=== PATIENT | female | born 1965 | race Caucasian/White ===

== ENCOUNTER → 2018-10-16 14:29 | Outpatient (CLI) | payer MEDICARE, SELFPAY ==
--- NOTE | 2018-10-16 14:37 | RAD_ITS ---
STUDY: X-RAY - LEFT KNEE REASON FOR EXAM: Female, 53 years old. Pain. TECHNIQUE: 4 view(s) of the knee, 2 labeled as weightbearing. COMPARISON: None. FINDINGS: There is periarticular spurring of the femoral condyles. There is periarticular spurring of the tibial plateaus and focal spurring from the medial tibial spine. Mild subarticular sclerosis of the medial tibial plateau. Normal visualized proximal fibula. There is periarticular spurring of the base and apex of the patella as well as early cortical spurring at the patellar insertion of the quadriceps tendon. There is no demonstrated destructive osseous lesion or acute fracture. There is degenerative arthrosis of the medial femorotibial compartment with moderately severe joint space narrowing. Normal lateral femorotibial compartment. Normal patellofemoral articulation. Normal proximal tibiofibular articulation. There is a soft tissue prominence in the suprapatellar region suggesting a small volume joint effusion. There is mild soft tissue swelling anterior to the patellar tendon. RAD/Knee 4 or More Views IMPRESSION: Degenerative arthrosis of the knee, most prominent in the medial femorotibial compartment. Electronically Signed: Fermín Marie MD at 16:25 EST , Service support ,
--- NOTE | 2018-10-16 14:37 | RAD_ITS ---
STUDY: X-RAY - LUMBAR SPINE REASON FOR EXAM: Female, 53 years old. Back pain. Surgery 2003. TECHNIQUE: 5 view(s) of the lumbar spine were obtained. COMPARISON: None FINDINGS: Patient has undergone prior L3 laminectomies and posterior spinal fusion L2-L4 with metal hardware. Bilateral transpedicular screws at these levels are secured on either side by metal brackets. There is some straightening of the normal lumbar lordosis. There is no substantial scoliosis. There is borderline retrolisthesis of L2 on L3 and borderline anterolisthesis of L3 on L4. There is multilevel endplate spondylosis of the lumbar vertebrae, most prominent at L4-5. There is multi-level degenerative disc disease with multi-level disc space narrowing, again most prominent at L4-5. There is no demonstrated osseous destructive lesion or acute fracture. No sign of hardware loosening. There are degenerative arthroses of the mid to lower lumbar facet joints. The soft tissue structures are unremarkable. RAD/L/S Spine Min 4 Views IMPRESSION: 1. Prior L3 laminectomies and posterior L2-L4 fusion with metal hardware. 2. Degenerative changes of the spine, as detailed above. Electronically Signed: Fermín Marie MD at 19:38 EST , Service support ,
--- NOTE | 2018-10-16 14:46 | RAD_ITS ---
STUDY: X-RAY - RIGHT KNEE REASON FOR EXAM: Female, 53 years old. Pain. TECHNIQUE: 4 view(s) of the knee. COMPARISON: None. FINDINGS: Normal visualized distal femur. Mild spurring of the medial tibial spine. Normal visualized proximal fibula. Normal patella. There is no demonstrated destructive osseous lesion or acute fracture. There is degenerative arthrosis of the medial femorotibial compartment with moderate to moderately severe joint space narrowing. There is borderline degenerative narrowing of the lateral femorotibial compartment. Borderline narrowing of the patellofemoral articulation. Normal proximal tibiofibular articulation. There is a soft tissue prominence in the suprapatellar region suggesting a small volume joint effusion. There is minor soft tissue swelling anterior to the patellar tendon. RAD/Knee 4 or More Views IMPRESSION: Degenerative changes of the right knee, with narrowing most prominent in the medial femorotibial compartment. Very small joint effusion also noted. Electronically Signed: Fermín Marie MD at 16:22 EST , Service support ,
== END ==
PROVIDERS: Family Provider Internal Medicine; Visit Provider Internal Medicine
DX: M25.561 Pain in right knee (principal); M25.562 Pain in left knee; M51.36 Other intervertebral disc degeneration, lumbar region
CPT/HCPCS: 72110; 73564

== ENCOUNTER → 2019-07-10 06:57 | Outpatient (CLI) | payer MEDICARE, SELFPAY ==
[2019-07-10 08:20] LABS: Hematocrit 43.2 % (37-47); Hemoglobin 14.6 g/dL (12.0-15.0); Mean Corp Hgb Conc 33.8 g/dL (32-36); Mean Corpuscular Hgb 30.4 pg (27.0-32.0); Mean Platelet Vol. 10.5 fl (6.2-12.0); Platelet Count 301 K/mm3 (150-450); RBC Distribution Width CV 13.2 % (11.6-14.6); RBC Distribution Width SD 43.7 fl (35.1-43.9); White Blood Count 7.8 K/mm3 (4.4-11.0)
[2019-07-10 08:48] LABS: Anion Gap 8 (5-15); BUN 17 mg/dL (7-18); BUN/Creat Ratio 24.7 RATIO (10-20); Calcium,Total 8.8 mg/dL (8.5-10.1); Chloride 95 mmol/L (98-107); Creatinine, Serum 0.69 mg/dL (0.55-1.02); EST Glomerular Filtration Rate 94 mL/min (>60); Est Glom Filt Rate - Afr Amer 114 mL/min (>60); Glucose 98 mg/dL (74-106); Potassium 4.1 mmol/L (3.5-5.1); Sodium Level 133 mmol/L (136-145)
== END ==
PROVIDERS: Family Provider Internal Medicine; PCP Internal Medicine; Referring Provider Orthopaedic Surgery; Visit Provider Orthopaedic Surgery
DX: Z01.810 Encounter for preprocedural cardiovascular examination (principal); Z01.818 Encounter for other preprocedural examination
CPT/HCPCS: 36415; 80048; 85027; 93005

== ENCOUNTER → 2019-10-17 08:09 | Outpatient (CLI) | payer MEDICARE, SELFPAY ==
--- NOTE | 2019-10-17 08:12 | CT_ITS ---
STUDY: CT LOWER EXTREMITY RIGHT REASON FOR EXAM: Female, 54 years old. RIGHT KNEE PILO RADIATION DOSAGE (If Supplied By Facility): CTDIvol = ( 32.53 ) mGy, DLP = ( 1853.41 ) mGycm. Individualized dose optimization techniques were used for this CT.? TECHNIQUE: Multiple axial tomographic images were obtained from the hip joint down to the ankle joint for preoperative planning for robotic surgery. Coronal and sagittal reconstruction were obtained as well. COMPARISON: None. FINDINGS: Mild to moderate degree of osteoarthritis of the medial compartment of the knee joint. Increased density in the medial plateau of the tibia suggestive of possible edema. CT/Extremity Lower without Contra IMPRESSION: Imaging obtained for robotic surgery planning of the knee joint. Electronically Signed: Tad Benjamin, at 14:46 EST , Service support ,
--- NOTE | 2019-10-17 08:15 | CT_ITS ---
STUDY: CT SCAN LOWER EXTREMITY LEFT REASON FOR EXAM: Female, 54 years old. LEFT KNEE PILO RADIATION DOSAGE (If Supplied By Facility): CTDIvol = ( 32.73 ) mGy, DLP = ( 2140.58 ) mGycm. Individualized dose optimization techniques were used for this CT.? TECHNIQUE: Multiple axial tomographic images were obtained from the hip joint down to the ankle joint without intravenous contrast administration. Sagittal and coronal reconstructions were obtained as well. This examination was obtained for preoperative planning for robotic knee replacement surgery. COMPARISON: None. FINDINGS: Marked degree of narrowing of the medial compartment of the knee joint with degenerative spur formation along the medial femoral condyle as well as the medial tibial plateau. CT/Extremity Lower without Contra IMPRESSION: Preoperative scanning of the left lower extremity for robotic knee surgery planning. Electronically Signed: Tad Benjamin, at 14:47 EST , Service support ,
== END ==
PROVIDERS: Family Provider Internal Medicine; PCP Internal Medicine; Referring Provider Orthopaedic Surgery; Visit Provider Orthopaedic Surgery
DX: M17.0 Bilateral primary osteoarthritis of knee (principal); M21.161 Varus deformity, not elsewhere classified, right knee; M21.162 Varus deformity, not elsewhere classified, left knee
CPT/HCPCS: 73700

== ENCOUNTER 2019-10-28 12:20 | Observation (INO) | payer MEDICARE, SELFPAY ==
[2019-10-16 09:06] VITALS: BP 104/74; PULSE 85; RESP 16; TEMP 37.1; O2SAT 97; BMI 23.1
--- NOTE | 2019-10-16 09:33 | SDCEKG_ITS ---
Test Reason : Blood Pressure : / mmHG Vent. Rate : 074 BPM Atrial Rate : 074 BPM P-R Int : 190 ms QRS Dur : 096 ms QT Int : 398 ms P-R-T Axes : 076 054 047 degrees QTc Int : 441 ms Normal sinus rhythm Possible Left atrial enlargement RSR' or QR pattern in V1 suggests right ventricular conduction delay Borderline ECG Confirmed by LEO PETTIT ([id number]), material expeditor ZAYNAB OCASIO ([id number]) on 10/17/2019 8:44:03 AM Referred By: Nikita Stanley Confirmed By:LEO PETTIT
[2019-10-16 11:01] LABS: Absolute Lymphocyte Count 2.35 X10^3/uL (0.83-4.51); Absolute Neutrophil Count 3.9 X10^3/uL (2.0-7.7); Basophil# 0.08 X10^3/uL; Basophil% 1.1 % (0-1); Eosinophil# 0.18 X10^3/uL; Eosinophils% 2.4 % (0-5); Hematocrit 43.5 % (37-47); Hemoglobin 14.5 g/dL (12.0-15.0); Lymphocyte # 2.35 X10^3/ul (4.0); Lymphocyte % 31.5 % (19-41); Mean Corp Hgb Conc 33.3 g/dL (32-36); Mean Corpuscular Hgb 29.7 pg (27.0-32.0); Mean Corpuscular Volume 89.1 fL (81-99); Mean Platelet Vol. 10.7 fl (6.2-12.0); Monocyte# 0.92 X10^3/uL; Monocyte% 12.3 % (0-10); NRBC Flagged by Analyzer 0 % (0-5); Neutrophil # 3.89 X10^3/uL (2.7-7.7); Neutrophil % 52.2 % (47-70); Platelet Count 258 K/mm3 (150-450); RBC Distribution Width CV 13.2 % (11.6-14.6); RBC Distribution Width SD 43.3 fl (35.1-43.9); Red Blood Count 4.88 M/mm3 (4.2-5.4); White Blood Count 7.5 K/mm3 (4.4-11.0)
[2019-10-16 11:02] LABS: Anion Gap 4 (5-15); BUN 17 mg/dL (7-18); BUN/Creat Ratio 24.2 RATIO (10-20); Chloride 100 mmol/L (98-107); EST Glomerular Filtration Rate 92 mL/min (>60); Est Glom Filt Rate - Afr Amer 111 mL/min (>60); Glucose 89 mg/dL (74-106); Potassium 3.3 mmol/L (3.5-5.1); Sodium Level 134 mmol/L (136-145)
[2019-10-28] VITALS (13 sets, daily range): BP systolic 91–106; BP diastolic 56–70; PULSE 72–98; RESP 16–18; TEMP 36.4–37.3; O2SAT 93–100; BMI 23.1
[2019-10-28] MEDS: Acetaminophen 500 MG Tablet 1000 MG PO ×2 (09:15→21:19)
[2019-10-28] MEDS: Magnesium Sulfate 4gm/100mL 4 GM/100 ML IV.SOLN. IV (09:15)
[2019-10-28] MEDS: Gabapentin 600 MG Tablet PO (09:15)
[2019-10-28] MEDS: Lactated Ringers 1,000 ML 100 ML IV (09:29)
[2019-10-28 09:41] LABS: Bedside Glucose 76 mg/dL (70-110)
--- NOTE | 2019-10-28 10:35 | KNEE_PTH ---
PATIENT: QUINTIN DAVID LOC: MS3 U#:[id number] AGE/SX: 54/F ROOM: [facility] [place]: Dr. Nikita Stanley DO : 1965 BED: 1 DIS: 10/29/2019 SPEC #: [id number] RECD: 10/28/19 13:25 STATUS: ISABELLA REYuliana #: [id number] SPENCER: 10/28/19 10:[address]: Nikita Stanley DEPT: SURGICAL PATHOLOGY RECD BY: Kathy Engel ENTERED: 10/28/19 14:52 SP TYPE: TOTAL KNEE OTHR DR: Dr. Daisy Escobar DO Tissues: Knee, NOS Procedures: Decalcification bone/plaque Surgery Specimen Level IV HEADER OPERATION: ERAS, total knee replacement robotic arm assist PRE-OP DIAGNOSIS: Unilateral primary osteoarthritis TISSUE SUBMITTED: Right knee bone MICROSCOPIC DIAGNOSIS Right knee bone, total knee replacement: Pieces of bone with degenerative osteoarthritic changes. SJ:carey 10/31/19 MICROSCOPIC DESCRIPTION Slides are reviewed. GROSS DESCRIPTION Received is one container designated bone right knee. The specimen consists of multiple fragments of garrett-yellow bone measuring in aggregate 12 x 10 x 3 cm. No soft tissue is identified. A number of bony fragments contain articular surfaces consistent with tibial plateau and femoral condyle and displaying prominent osteophyte formation, eburnation, and bone erosion. Director Of Digital Platforms sections are submitted in one cassette after decalcification. / YISEL:carey 10/28/19 TC:5 CPT: 44160, 49292
[2019-10-28] MEDS: Cefazolin 2 GM in 0.9% Normal Saline 100 ML IV (10:50)
--- NOTE | 2019-10-28 12:22 | RAD_ITS ---
STUDY: X-RAY - RIGHT KNEE REASON FOR EXAM: Female, 54 years old. POST OP RIGHT TOTAL KNEE REPLACEMENT. TECHNIQUE: 2 view(s) of the knee. COMPARISON: Comparison is made with prior study dated October 16, 2018. FINDINGS: Normal visualized distal femur. Normal visualized proximal tibia and fibula. Normal proximal tibiofibular articulation. The patient is status post total knee replacement. There is good alignment. Postoperative soft tissue changes. RAD/Knee 1 or 2 Views IMPRESSION: Status post right total knee replacement. There is good alignment. Postoperative soft tissue changes. Electronically Signed: Tad Benjamin, at 13:53 EST , Service support ,
[2019-10-28] MEDS: Lactated Ringers 1,000 ML 999 ML IV (12:30)
[2019-10-28] MEDS: Bupivacaine Mpf 0.5% 30 ML VIAL (12:42)
[2019-10-28] MEDS: Betamethasone/Betamethasone 30 MG/5 ML Vial (12:42)
[2019-10-28 14:11] LABS: Hematocrit 38.8 % (37-47); Hemoglobin 13.1 g/dL (12.0-15.0); Mean Corp Hgb Conc 33.8 g/dL (32-36); Mean Corpuscular Hgb 30.3 pg (27.0-32.0); Mean Corpuscular Volume 89.6 fL (81-99); Mean Platelet Vol. 9.7 fl (6.2-12.0); Platelet Count 254 K/mm3 (150-450); RBC Distribution Width CV 13.1 % (11.6-14.6); RBC Distribution Width SD 42.9 fl (35.1-43.9); Red Blood Count 4.33 M/mm3 (4.2-5.4); White Blood Count 9.1 K/mm3 (4.4-11.0)
[2019-10-28 14:21] LABS: Anion Gap 4 (5-15); BUN 21 mg/dL (7-18); BUN/Creat Ratio 25.1 RATIO (10-20); Calcium,Total 8.5 mg/dL (8.5-10.1); Chloride 103 mmol/L (98-107); Creatinine, Serum 0.84 mg/dL (0.55-1.02); EST Glomerular Filtration Rate 75 mL/min (>60); Est Glom Filt Rate - Afr Amer 91 mL/min (>60); Estimated Creatinine Clearance 76.34 ml/min; Glucose 127 mg/dL (74-106); Potassium 3.6 mmol/L (3.5-5.1); Sodium Level 138 mmol/L (136-145)
--- NOTE | 2019-10-28 14:37 | PCM.OPRPT ---
Report of Operation Date of Procedure: 10/28/19 Pre-Operative Diagnosis: OA b/l knees Post-Operative Diagnosis: same Surgery/Procedure Performed:: Right TKR (robotically assisted). Intra-articular cortisone injection left knee pediatric care coordinator: Asher Linares Type of Anesthesia:: General/Regional Anesthesiologist: Bandar Metzger - Cabrera VTE Documentation VTE Present on Admission: No VTE Mechan Device Prophylaxis: SCD's, Thigh High NOMI Hose VTE Pharm Prophylaxis ordered?: Yes
[2019-10-28] MEDS: oxyCODONE 5 MG Tablet PO ×2 (15:09→20:18)
[2019-10-28] MEDS: busPIRone 15 MG TABLET PO ×2 (16:01→21:18)
[2019-10-28] MEDS: Cefazolin 1 GM/50 ML BAG IV (18:56)
[2019-10-28] MEDS: Lactated Ringers 1,000 ML 125 ML IV (18:57)
[2019-10-28] MEDS: Aspirin 325 MG Tablet PO (21:18)
[2019-10-29] MEDS: Cefazolin 1 GM/50 ML BAG IV (02:36)
[2019-10-29 02:40] VITALS: BP 96/57; PULSE 75; RESP 16; TEMP 36.4; O2SAT 95
[2019-10-29] MEDS: oxyCODONE 5 MG Tablet PO ×3 (02:50→10:58)
[2019-10-29] MEDS: Acetaminophen 500 MG Tablet 1000 MG PO (06:10)
[2019-10-29] MEDS: busPIRone 15 MG TABLET PO (06:11)
[2019-10-29] MEDS: 0.9% Saline Lock 10 ML Syringe IV (06:16)
[2019-10-29 06:22] LABS: Hematocrit 37.9 % (37-47); Hemoglobin 12.5 g/dL (12.0-15.0); Mean Corpuscular Hgb 30.9 pg (27.0-32.0); Mean Corpuscular Volume 93.8 fL (81-99); Mean Platelet Vol. 11.4 fl (6.2-12.0); Platelet Count 159 K/mm3 (150-450); RBC Distribution Width SD 51.8 fl (35.1-43.9); Red Blood Count 4.04 M/mm3 (4.2-5.4); White Blood Count 10.8 K/mm3 (4.4-11.0)
[2019-10-29 06:45] LABS: Anion Gap 5 (5-15); BUN 17 mg/dL (7-18); BUN/Creat Ratio 29.8 RATIO (10-20); Calcium,Total 8.1 mg/dL (8.5-10.1); Chloride 108 mmol/L (98-107); Creatinine, Serum 0.57 mg/dL (0.55-1.02); EST Glomerular Filtration Rate 117 mL/min (>60); Est Glom Filt Rate - Afr Amer 141 mL/min (>60); Estimated Creatinine Clearance 112.49 ml/min; Glucose 114 mg/dL (74-106); Potassium 4.5 mmol/L (3.5-5.1); Sodium Level 134 mmol/L (136-145)
--- NOTE | 2019-10-29 07:43 | PN.ORTHO_ITS ---
Subjective: Patient sitting at bedside eating breakfast. Patient states pain is well- managed. Patient denies chest pain, shortness of breath, calf pain, nausea vomiting. Patient states she is ready for discharge home. Patient has no other complaints. Objective: Dressing is clean dry intact. Negative signs and symptoms of DVT. Patient speaking full sentences without respiratory distress. Patient has good plantar flexion dorsiflexion of the bilateral lower extremities. Neurovascular is otherwise intact. Patient is afebrile, vitals labs were all reviewed and noted in the medical record. - Physical Exam Vitals/I&O's: Vital Signs Temp Pulse Resp BP Pulse Ox 97.6 F L 75 16 96/57 L 95 10/29/19 02:40 10/29/19 02:40 10/29/19 02:40 10/29/19 02:40 10/29/19 02:40 Oxygen Flow Rate (L/min) 6 Oxygen Delivery Method Room Air Weight: 68.8 kg Body Mass Index (BMI) 23.1 Intake and Output for Last 24 Hours 10/27/19 10/28/19 10/29/19 23:59 23:59 23:59 Intake Total 3232.08 / 3232.08 350 / 350 Output Total 700 / 700 Balance 3232.08 / 3232.08 -350 / -350 General: Alert, Oriented x3, Cooperative HEENT: PERRLA Oral: Moist Mucosa Neurological: Cranial nerves II-XII grossly intact Psych/Mental Status: Normal Affect, Alert and oriented to time, place, person, mood and affect Laboratory Results 10/28/19 09:02: POC Glucose 76 10/28/19 14:00: WBC 9.1, RBC 4.33, Hgb 13.1, Hct 38.8, MCV 89.6, MCH 30.3, MCHC 33.8, RDW Std Deviation 42.9, RDW Coeff of Gertrudis 13.1, Plt Count 254, MPV 9.7 10/28/19 14:00: Sodium 138, Potassium 3.6, Chloride 103, Carbon Dioxide 31.0, Anion Gap 4 L, BUN 21 H, Creatinine 0.84, Estim Creat Clear Calc 76.34, Est GFR (MDRD) Af Amer 91, Est GFR (MDRD) Non-Af 75, BUN/Creatinine Ratio 25.1 H, Glucose 127 H, Calcium 8.5 10/29/19 05:24: WBC 10.8, RBC 4.04 L, Hgb 12.5, Hct 37.9, MCV 93.8, MCH 30.9, MCHC 33.0, RDW Std Deviation 51.8 H, RDW Coeff of Gertrudis 15.0 H, Plt Count 159, MPV 11.4 10/29/19 05:24: Sodium 134 L, Potassium 4.5, Chloride 108 H, Carbon Dioxide 21.0, Anion Gap 5, BUN 17, Creatinine 0.57, Estim Creat Clear Calc 112.49, Est GFR (MDRD) Af Amer 141, Est GFR (MDRD) Non-Af 117, BUN/Creatinine Ratio 29.8 H, Glucose 114 H, Calcium 8.1 L Current Medications Acetaminophen (Tylenol) 1,000 mg PO Q8 REPLACED BY [facility] Last Admin: 10/29/19 06:10 Dose: 1,000 mg Documented by: Aspirin (Aspirin) 325 mg PO BID REPLACED BY [facility] Last Admin: 10/28/19 21:18 Dose: 325 mg Documented by: Buspirone HCl (Buspar) 15 mg PO TID REPLACED BY [facility] Last Admin: 10/29/19 06:11 Dose: 15 mg Documented by: Sodium Chloride () 250 mls @ 15 mls/hr IV .[id number] PRN PRN Reason: Saline Flush Sodium Chloride () 250 mls @ 15 mls/hr IV .[id number] PRN PRN Reason: Additional IVPB Infusion Indapamide (Lozol) 2.5 mg PO DAILY REPLACED BY [facility] Insulin Human Lispro (Humalog Kwikpen (Bkc)) 1 - 6 unit SC Q4H PRN PRN; Protocol PRN Reason: BG>/= 180, SEE PROTOCOL Lisinopril (Zestril) 20 mg PO DAILY REPLACED BY [facility] Ondansetron HCl (Zofran) 4 mg IV Q8H PRN PRN PRN Reason: NAUSEA Oxycodone HCl (Oxyir) 5 - 10 mg PO Q4H PRN PRN PRN Reason: Pain Score 4-10/10 Last Admin: 10/29/19 06:57 Dose: 5 mg Documented by: Promethazine HCl (Phenergan) 12.5 mg IM Q6H PRN PRN; Protocol PRN Reason: NAUSEA/VOMITING Senna/Docusate Sodium (Senokot-S, Ashley-Colace) 2 tablet PO BID MAYCOL Last Admin: 10/28/19 21:19 Dose: Not Given Documented by: Sodium Chloride () 10 - 40 ml IV UD PRN PRN Reason: SALINE FLUSH Last Admin: 10/29/19 06:16 Dose: 10 ml Documented by: Medical Necessity - Tobacco Use Smoking Status: Former smoker Tobacco Use: Cigarettes Assessment/Plan Status post right total knee arthroplasty 1. Continue all pain medications as prescribed 2. Continue physical therapy, weight-bear as tolerated with walker 3. Aspirin 3 and 25 mg 1 p.o. every 12 hours x30 days for postop DVT prophylaxi s 4. Encourage incentive spirometry 5. Discharge home today after p.m. therapy 6. Follow-up as scheduled, see pink sheet 7. Shower , 10/31/2019
--- NOTE | 2019-10-29 07:58 | DCINST_ITS ---
Discharge Diet: No Restrictions Discharge Activity: May Not Drive May shower in (days): 2 Ice area for (Minutes): 20 - each hour while awake. Weight Bearing Status: Weight bearing as tolerated Elevate: Operative Extremity Additional Activity Instructions:: Wear elastic stockings for 2 weeks after your surgery. Call your doctor if your incision/area has: Continuous Slow Oozing, Sudden Increased Bleeding, Increased Pain/ Swelling, Increased Redness, Foul Smelling Discharge Call your doctor if you observe: Fever of 101 or Higher, Coldness, Increased Pain - in extremity, Numbness or Tingling, Change in Color, Calf discomfort, Uncontrolled pain Change Dressing in (Days):: 0 - and daily as needed. Remove Dressing in (days):: 8 Cleanse incision/area with: Soap & Water Allergies/Adverse Reactions: Allergies No Known Allergies Allergy (Verified 10/28/19 08:57) Medications to take at Discharge Dextroamphetamine/Amphetamine [Adderall 10 mg Tablet] 10 mg PO 1400 10/16/19 Dextroamphetamine/Amphetamine [Adderall Xr 10 mg Capsule] 10 mg PO DAILY 10/16/19 Indapamide 2.5 mg PO DAILY 10/16/19 Lisinopril 20 mg PO DAILY 10/16/19 busPIRone [Buspar] 15 mg PO TID 10/16/19 Acetaminophen [Tylenol] 1,000 mg PO Q8 #90 tab 10/29/19 Aspirin 325 mg PO BID #60 tab 10/29/19 Oxycodone [Oxyir] 5 - 10 mg PO Q4H PRN PRN 7 Days #84 tab 10/29/19 The following prescriptions were given: Aspirin 325 mg PO BID #60 tab Prescription Printed Oxycodone [Oxyir] 5 - 10 mg PO Q4H PRN PRN 7 Days #84 tab PRN Reason: Pain Score 4-10/10 Prescription Printed Acetaminophen [Tylenol] 1,000 mg PO Q8 #90 tab Prescription Printed Primary Care Physician: Daisy Escobar DO [Primary Care Provider] - Test Results: Test results from this visit will be discussed in further detail at your follow- up appointment, if applicable. Please Follow Up With: Asher Linares PA-C When: as scheduled (see pink sheet)
[2019-10-29] MEDS: Aspirin 325 MG Tablet PO (08:11)
[2019-10-29] MEDS: Indapamide 2.5 MG Tablet PO (08:12)
[2019-10-29] MEDS: Lisinopril 20 MG Tablet PO (08:12)
[2019-10-29] MEDS: Senna/Docusate Sodium 1 Tablet 2 TABLET PO (08:12)
[2019-10-29 08:15] VITALS: BP 99/59; PULSE 75; RESP 16; TEMP 36.8; O2SAT 96
--- NOTE | 2019-10-29 10:20 | CASEMGMT ---
RN CAREY Face to Face with patient for initial transition planning/care coordination assessment. RN CM introduced self and role at [facility]. Patient sitting in chair, alert and oriented, at bedside. Patient willing to participate in assessment and is able to answer all questions appropriately. Care providers, pharmacy, and demographics verified. Patient wishes to discharge home and is scheduled for outpatient therapy at [facility]. Patient states she has no further needs or concerns at this time. CM to follow for discharge planning needs that may arise. PCP: Shawn Specialists: braden Stanley Pharmacy: [facility] Boat[facility] being filled at [facility] retail Insurance: [facility] Prescription Benefit: yes Living Will/HPOA: yes, but not sure who is appointed LNOK: daughter, Living Arrangements: patient lives with in 2 story home with bed and bath on first floor. Transportation: DME/HHC: Patient has shower chair, walker, and grab bars at home. Patient has outpatient therapy scheduled with [facility] Disposition Plan: Patient to discharge home with outpatient therapy, family support, and follow-up plans in place. Kathryn COOPER, RN, CM
[2019-10-29 13:10] VITALS: BP 103/59; PULSE 74; RESP 16; TEMP 36.7; O2SAT 93
== END 2019-10-29 13:10 | disposition home or self-care (01) ==
LOC: MS3 20:06
PROVIDERS: Admitting Provider Orthopaedic Surgery; Family Provider Internal Medicine; PCP Internal Medicine; Referring Provider Orthopaedic Surgery; Visit Provider Orthopaedic Surgery
PROC: 0SRC0JZ Replacement of Right Knee Joint with Synthetic Substitute, Open Approach (ICD-10-PCS; CPT 27447; principal; 2019-10-28 10:05)
DX: M17.0 Bilateral primary osteoarthritis of knee (principal); Z87.891 Personal history of nicotine dependence; Z79.899 Other long term (current) drug therapy; I10 Essential (primary) hypertension; F90.9 Attention-deficit hyperactivity disorder, unspecified type
CPT/HCPCS: 01400; 20610; 27447; 64447; S2900; 36415; 73560; 80048; 82962; 85025; 85027; 87081; 88305; 88311; 93005; 96361; 96365; 96366; 97110; 97161; 97165; 97530; 97535; 99218; 99251; C1776; J7120; A4216; G0378; G0379; G0463; J0702; J2405

== ENCOUNTER → 2020-01-06 09:43 | Outpatient (CLI) | payer MEDICARE, SELFPAY ==
[2019-10-28 08:58] VITALS: BMI 23.1
--- NOTE | 2020-01-06 09:49 | RAD_ITS ---
STUDY: X-RAY - LUMBAR SPINE REASON FOR EXAM: Female, 54 years old. SCIATICA TECHNIQUE: 5 view(s) of the lumbar spine were obtained including oblique views. COMPARISON: Comparison is made with prior examination dated October 16, 2018. FINDINGS: The patient is status post laminectomy and fusion with interpedicular screw and nicolas fixation at the L3-L4 and L4-L5 levels. There is straightening of the normal lumbar lordosis. There is no substantial scoliosis. There is a normal alignment of the vertebrae. There is multilevel endplate spondylosis of the lumbar vertebrae. There is multi-level degenerative disc disease with multi-level disc space narrowing. There is atherosclerotic calcification of the abdominal aorta without a demonstrated aneurysm. RAD/L/S Spine Min 4 Views IMPRESSION: Status post L2-L3, L3-L4 laminectomy and fusion. Degenerative changes. There has been no change since prior study. Electronically Signed: Tad Benjamin, at 11:16 EDT , Service support ,
== END ==
PROVIDERS: PCP Internal Medicine; Referring Provider Nurse Practitioner Family; Visit Provider Nurse Practitioner Family
DX: M96.1 Postlaminectomy syndrome, not elsewhere classified (principal); M47.27 Other spondylosis with radiculopathy, lumbosacral region; M48.062 Spinal stenosis, lumbar region with neurogenic claudication
CPT/HCPCS: 72110

== ENCOUNTER 2020-01-18 07:20 | Emergency (ER) | payer MEDICARE, SELFPAY ==
[2019-10-28 08:58] VITALS: BMI 23.1
[2020-01-18 07:20] VITALS: BP 129/82; PULSE 85; RESP 16; TEMP 36.6; O2SAT 99; BMI 25.7
--- NOTE | 2020-01-18 07:51 | ED.DCSUM_ITS ---
History of Present Illness Chief Complaint: Back Informant: Patient Onset: Month(s) - 1 month Context: Gradual Onset Current Severity: Moderate Maximum Severity: Moderate Narrative: Patient presents with 1 month history of back pain. She has had prior back surgery. Patient does not know of specific incident 1 month ago that started this pain. She has been seen by her PCP as well as by Dr. Guardado, pain management. Patient is currently on gabapentin and had completed a course of prednisone. She was started on baclofen 3 days ago to help with spasm. She is scheduled for an MRI on the . She presents today secondary to increased pain and difficulty sleeping. She has noted some tingling in her right foot. - Past Medical History (1) Back pain with history of spinal surgery Status: Chronic Past Medical History - Allergies and Home Meds Allergies/Adverse Reactions: Allergies No Known Allergies Allergy (Verified 10/28/19 08:57) Primary Care Physician: Daisy Escobar DO [Primary Care Provider] - Doctors: Dr. Guardado, pain management Prior records reviewed: Yes Smoking Status: Former smoker Review of Systems General: Denies: Chills, Fever Eyes: Denies: Visual changes - bilaterally ENT: Denies: Bilateral ear pain Cardiovascular: Denies: Chest pain Respiratory: Denies: Dyspnea, Cough Gastrointestinal: Denies: Abdominal pain, Nausea, Vomiting, Diarrhea Musculoskeletal: Reports: Back pain, Extremity Pain Skin: Denies: Rash Neurological: Reports: Parasthesia Hematologic: Denies: Easy bruising, Easy bleeding Allergy: Denies: Uticaria Physical Exam Vital Signs/Narrative: Vital Signs Temp Pulse Resp BP Pulse Ox 01/18/20 07:20 97.8 F 85 16 129/82 H 99 Inital Vital Signs reviewed: Yes General: Well nourished, Well developed Head: Normocephalic ENT: Moist mucous membranes Neck: Supple Cardiovascular: Regular rate, Regular rhythm Respiratory: No distress, CTA bilaterally Abdomen: Soft, Nontender Back: - - No midline thoracic or lumbar tenderness. Well-healed lumbar scar. She does have reproducible tenderness over the sciatic notch on the right. No erythema or rash noted. 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 Good strength and sensation noted on testing on the right. Strong distal pulses. 1+ bilateral patellar reflexes noted. Psychological: Normal affect Diagnostic/Tx/Re-eval - Medical Decision Making I did explain to the patient that at this time I cannot get an emergency MRI. She understands. She will be written a prescription for [place] to help with pain control. She will continue baclofen and gabapentin. I did leave a message for Dr. Guardado to notify her pain management doctor about the prescription. Patient be given an IM injection of morphine here for pain control. ED Disposition - Plan for ED Patient: Disposition: Home or Assisted Living Diagnosis: Back pain, Sciatica Instructions: Understanding Sciatica Prescriptions: Hydrocodone Bitart/Apap 5-325 [[place] 5MG-325MG] 1 tablet PO Q6H PRN PRN 3 Days #12 tablet PRN Reason: Pain Transmission Status: Sent to [id number] Referrals: Daisy Escobar DO [Primary Care Provider] - 1 Week if not improving
[2020-01-18] MEDS: morphine 8 MG/ML Syringe IM (08:11)
== END 2020-01-18 08:53 | disposition home or self-care (01) ==
LOC: ED 07:59
PROVIDERS: Emergency Provider Emergency Medicine; PCP Internal Medicine
DX: M54.31 Sciatica, right side (principal); M54.9 Dorsalgia, unspecified; Z98.890 Other specified postprocedural states; Z87.891 Personal history of nicotine dependence; Z79.899 Other long term (current) drug therapy
CPT/HCPCS: 96372; 99282

== ENCOUNTER → 2020-01-23 10:56 | Outpatient (CLI) | payer MEDICARE, SELFPAY ==
[2019-10-28 08:58] VITALS: BMI 23.1
[2020-01-18 07:20] VITALS: BMI 25.7
--- NOTE | 2020-01-23 11:13 | MRI_ITS ---
STUDY: MRI LUMBAR SPINE WITH AND WITHOUT CONTRAST REASON FOR EXAM: Female, 54 years old. SEVERE LOW BACK PAIN into R buttock x 1 month TECHNIQUE: Standardized fat and water weighted pulse sequences were obtained in the sagittal and axial planes. 14 mL of IV Dotarem was administered for the contrast portion of the examination. COMPARISON: MRI lumbar spine without contrast 03/13/2006. FINDINGS: T11-T12: (Sagittal only). Normal endplates. Normal disc height and morphology. Normal central extradural defect. Normal central canal and bilateral intervertebral neural foramina. T12-L1: (Sagittal only). Normal endplates. Mild disc space height narrowing. Small right posterior paramedian disc protrusion. Normal central canal and bilateral intervertebral neural foramina. Normal lumbar lordosis. There is no substantial scoliosis. Normal conus medullaris that terminates at the T12-L1 disc level. L1-2: Normal endplates. Small anterior disc protrusion. Minimal disc space height narrowing with mild loss of disc hydration. Small posterior bulging disc. Normal central canal and bilateral lateral recesses. Normal facet joints. Normal bilateral intervertebral neural foramina. L2-3: Normal endplates. Moderate disc space height narrowing. Pedicular screws and rods causing some mild signal distortion artifacts. Normal central canal and bilateral lateral recesses. Normal facet joints. Normal bilateral intervertebral neural foramina. L3-4: Normal endplates. Pronounced left-sided disc space height narrowing. Mild degenerative anterolisthesis of L3 on L4 is a new finding but there are pedicular screws and rods from posterior decompression fusion. Normal central canal and bilateral lateral recesses. Normal bilateral intervertebral neural foramina. L4-5: Pronounced disc space height narrowing with prominent anterior marginal spurs. Smaller posterior marginal spurs. Pedicular screws at L4. Mild central canal stenosis with an AP canal diameter of 10 mm a period normal bilateral lateral recesses. Moderate bilateral degenerative facet arthropathy. Moderate stenosis of the left intervertebral neural foramen. Mild stenosis of the right intervertebral neural foramen. L5-S1: Normal endplates. Moderate disc space height narrowing with small posterior midline disc protrusion. Moderately pronounced central canal stenosis with an AP canal diameter of 6 mm, previously 10 mm. Normal bilateral lateral recesses. Mild asymmetric degenerative facet arthropathy. Mild to moderate stenosis of the right intervertebral neural foramen with suspicious impingement of the right L5 nerve (series 6, image 12). Mild stenosis of the left intervertebral neural foramen but no impingement of the left L5 nerve. There is a recent fracture of the right L5 transverse process (series 9, images 5-6). Normal visualized sacral ala. Normal visualized paraspinous soft tissue structures. No abnormal enhancing lesions intradural lesion extradurally. MRI/Spine Lumbar W/WO Contrast IMPRESSION: 1. Recent fracture of the right L5 transverse process. 2. Interval posterior decompression and fusion at L2-L3 and L3-L4 disc space levels. 3. Moderately pronounced central canal stenosis at L5-S1 disc level with small posterior midline disc protrusion. The AP canal diameter is 6 mm, previously 10 mm. Additionally, mild to moderate stenosis of the right L5-S1 intervertebral neural foramen with suspicious impingement of the right L5 nerve. 4. Minimal L1-L2 disc space height narrowing with small posterior bulging disc, new since 03/13/2006. 5. No abnormal enhancing lesions intradurally and extradurally. Electronically Signed: Rickey Hilton MD at 13:33 EDT , Service support ,
== END ==
PROVIDERS: PCP Internal Medicine; Referring Provider Internal Medicine; Visit Provider Internal Medicine
DX: M54.16 Radiculopathy, lumbar region (principal)
CPT/HCPCS: 72158

== ENCOUNTER → 2020-03-27 10:52 | Outpatient (CLI) | payer MEDICARE, SELFPAY ==
[2020-03-27 11:38] LABS: Amphetamine Urine VISTA NEGATIVE (<1000 ng/mL); Barbiturate Urine VISTA NEGATIVE (< 200 ng/mL); Benzodiazepine Urine VISTA NEGATIVE (< 200 ng/mL); Cocaine Urine VISTA NEGATIVE (< 300 ng/mL); Ecstacy Urine VISTA NEGATIVE (< 500 ng/mL); Methadone Urine VISTA NEGATIVE (< 300 ng/mL); PCP Urine VISTA NEGATIVE (< 25 ng/mL); THC Urine VISTA NEGATIVE (< 50 ng/mL); Vista UDS pH Range 6
== END ==
PROVIDERS: PCP Internal Medicine; Referring Provider Anesthesiology; Visit Provider Anesthesiology
DX: F11.20 Opioid dependence, uncomplicated (principal)
CPT/HCPCS: 80307

== ENCOUNTER → 2020-11-17 12:27 | Outpatient (CLI) | payer MEDICARE, SELFPAY ==
--- NOTE | 2020-11-17 12:45 | BD_ITS ---
STUDY: DUAL ENERGY X-RAY ABSORPTIOMETRY / DXA REASON FOR EXAM: Female, 55 years old. Age of courtney 42. Pat is 158.9# and 67 and quot;. Past hx of smoking. Past hx of using an HRT for a short time. Has had steroid injections.Patient taking a low dose diuretic for a short time now. Hx of an L2-L4 fusion. Mom has osteo. Exercises a lot. TECHNIQUE: Bone Mineral Density (BMD) measurements of left forearm bilateral hips were obtained. COMPARISON: Comparison is made with prior examination dated 05/28/2013. FINDINGS: Left Femur Total: g/cm2 (0.710) / T-score (-2.4) / Z-score (-1.6) Left Femoral Neck: g/cm2 (0.661) / T-score (-2.7) / Z-score (-1.6) Right Femur Total: g/cm2 (0.681) / T-score (-2.6) / Z-score (-1.9) Right Femoral Neck: g/cm2 (0.639) / T-score (-2.9) / Z-score (-1.8) Left Forearm: g/cm2 (0.820) / T-score (-0.6) / Z-score (-0.1) The T-Scores on the most recent prior examination were: Left Femur Total: which represents a worsening of 9%. Right Femur Total: which represents a worsening of 9.1%. BD/Dexa Bone Density Study IMPRESSION: The patient is considered osteoporotic as outlined below according to World [employer] Organization (WHO) criteria with a high fracture risk. There has been worsening of bone density since the previous examination. Reference Information: The T-score is the number of standard deviations above or below the standard which is normal for young adults at their peak bone mineral density. The World Health Organization (WHO) interprets the T-scores as follows: Above -1 Normal bone density Between -1 and -2.5 Osteopenia Equal to / or below -2.5 Osteoporosis As a practical clinical guideline, osteopenia may be graded as follows: Mild -1 through -1.5 Moderate -1.6 through -2.0 Severe -2.1 through -2.4 The Z-score is the number of standard deviations above or below age-matched controls. A Z-score of less than -1.5 would be considered abnormal. References: 1. NIH Osteoporosis and Related Bone Diseases www osteo.org 2. International Society for Clinical Densitometry www iscd.org 3. National Osteoporosis Foundation www nof.org Electronically Signed: Tad Benjamin MD at 13:57 EST , Service support ,
== END ==
PROVIDERS: PCP Internal Medicine; Referring Provider Internal Medicine; Visit Provider Internal Medicine
DX: Z78.0 Asymptomatic menopausal state (principal); M81.0 Age-related osteoporosis without current pathological fracture
CPT/HCPCS: 77080

== ENCOUNTER → 2020-12-24 11:15 | Outpatient (CLI) | payer MEDICARE, SELFPAY ==
--- NOTE | 2020-12-24 11:21 | BI_ITS ---
MAMMOGRAPHY - BILATERAL SCREENING REASON FOR EXAM: Female, 55 years old. Routine annual screening examination. PERTINENT HISTORY: Non-contributory. TECHNIQUE: Digital bilateral breast yuridia (3D mammographic acquisition) in the CC and MLO projections. 2-D mediolateral oblique (MLO) and craniocaudad (CC) views of both breasts were obtained. CAD: Full Field Digital Mammography with Computer Added Detection was performed. COMPARISON: Comparison is made with prior outside examination of 12/02/2019 and 09/20/2013. FINDINGS: Breast Composition: The breasts are heterogeneously dense, which may obscure small masses. There are no dominant masses or suspicious calcifications. No other significant abnormalities are identified. There has been no significant change since the prior study. BI/SCRN MAMM (CAD)W/YURIDIA BILAT IMPRESSION: Stable bilateral screening mammogram. Yearly follow-up mammogram recommended. (A) ASSESSMENT CATEGORY: BIRADS Category 1: Negative. A letter regarding these results will be sent to the patient by the facility within 30 days. Approximately 10% of breast cancers are not detected by mammography. A normal mammogram should not delay biopsy of a clinically suspicious abnormality. [id number] Electronically Signed: Tad Benjamin MD at 13:43 EDT , Service support ,
== END ==
PROVIDERS: PCP Internal Medicine; Referring Provider Internal Medicine; Visit Provider Internal Medicine
DX: Z12.31 Encounter for screening mammogram for malignant neoplasm of breast (principal)
CPT/HCPCS: 77063; 77067

== ENCOUNTER → 2021-03-11 12:26 | Outpatient (CLI) | payer MEDICARE, SELFPAY ==
[2021-01-27 09:27] VITALS: BMI 25.7
[2021-03-11 13:35] LABS: Amphetamine Urine VISTA NEGATIVE (<1000 ng/mL); Barbiturate Urine VISTA NEGATIVE (< 200 ng/mL); Benzodiazepine Urine VISTA NEGATIVE (< 200 ng/mL); Cocaine Urine VISTA NEGATIVE (< 300 ng/mL); Ecstacy Urine VISTA NEGATIVE (< 500 ng/mL); Methadone Urine VISTA NEGATIVE (< 300 ng/mL); PCP Urine VISTA NEGATIVE (< 25 ng/mL); THC Urine VISTA NEGATIVE (< 50 ng/mL); Vista UDS pH Range 6
== END ==
PROVIDERS: PCP Internal Medicine; Referring Provider Anesthesiology Pain Medicine; Visit Provider Anesthesiology Pain Medicine
DX: F11.20 Opioid dependence, uncomplicated (principal)
CPT/HCPCS: 80307

== ENCOUNTER → 2021-04-07 12:18 | Outpatient (CLI) | payer MEDICARE, SELFPAY ==
[2021-01-27 09:27] VITALS: BMI 25.7
--- NOTE | 2021-04-07 12:22 | RAD_ITS ---
STUDY: X-RAY - LEFT ANKLE REASON FOR EXAM: Female, 55 years old. Heel pain following injury. TECHNIQUE: 3 view(s) of the ankle. COMPARISON: None. FINDINGS: Normal visualized distal tibia and fibula. Normal medial and lateral malleoli. Normal tibiotalar articulation and ankle mortise. Spur at insertion of the Achilles tendon. Findings suggestive of an avulsion fracture along the posterior aspect of the cuboid bone. The soft tissue structures are unremarkable. RAD/Ankle min 3 Views IMPRESSION: Findings suggestive of an avulsion fracture along the posterior aspect of the cuboid bone. Electronically Signed: Tad Benjamin MD at 15:33 EDT , Service support ,
== END ==
PROVIDERS: PCP Internal Medicine; Referring Provider Internal Medicine; Visit Provider Internal Medicine
DX: M25.572 Pain in left ankle and joints of left foot (principal)
CPT/HCPCS: 73610

== ENCOUNTER → 2021-05-08 08:44 | Outpatient (CLI) | payer MEDICARE, SELFPAY ==
[2021-01-27 09:27] VITALS: BMI 25.7
--- NOTE | 2021-05-08 08:51 | MRI_ITS ---
STUDY: MRI LEFT ANKLE WITHOUT CONTRAST REASON FOR EXAM: Female, 55 years old. ACHILLES TENDINITIS/TEAR, posterior and lateral heel pain x 2-3 months TECHNIQUE: Standardized fat and water weighted pulse sequences were obtained in all 3 orthogonal planes. COMPARISON: None. FINDINGS: Normal subcutis adipose space. Normal posterior tibialis tendon. Normal flexor digitorum longus tendon. Normal flexor hallucis longus tendon. Normal peroneus longus and brevis tendons. Normal tibialis anterior tendon. Normal extensor hallucis longus tendon. Normal extensor digitorum longus tendons. Thickening of the distal Achilles tendon consistent with insertional Achilles tendinitis. No partial thickness tear. Associated edema of Kager''s fat pad consistent with peritendinosis. Associated retrocalcaneal bursitis and posterior peritendinitis. Associated severe stress reaction of the posterior calcaneus. Normal plantar fascia. Normal plantar calcaneal tubercles. Normal intrinsic muscles of the rearfoot. Normal distal tibiofibular syndesmotic ligamentous complex. Normal lateral ligamentous complex. Normal subtalar ligaments and sinus tarsi. Normal deltoid ligamentous complexes. Normal plantar calcaneonavicular (spring) ligament. Normal tibiotalar articulation. Normal talar dome. Normal subtalar articulations. Normal talonavicular articulation. Normal calcaneocuboid articulation. Normal navicular-cuneiform articulations. MRI/Lower Ext Joint Only (Routine) IMPRESSION: Insertional Achilles tendinitis, peritendinitis is, retrocalcaneal bursitis, posterior peritendinitis, and severe stress reaction of the posterior calcaneus. However, no tendon tear. Electronically Signed: Carson Borden MD at 11:41 EDT Tel , Service support ,
== END ==
PROVIDERS: PCP Internal Medicine; Referring Provider Podiatrist; Visit Provider Podiatrist
DX: M76.62 Achilles tendinitis, left leg (principal); M77.52 Other enthesopathy of left foot and ankle; S86.012A Strain of left Achilles tendon, initial encounter; X58.XXXA Exposure to other specified factors, initial encounter; Y93.9 Activity, unspecified; Y92.9 Unspecified place or not applicable; Y99.9 Unspecified external cause status
CPT/HCPCS: 73721

== ENCOUNTER 2021-11-11 10:46 | Outpatient (CLI) | payer MEDICARE, SELFPAY ==
[2021-11-11 11:06] LABS: Absolute Lymphocyte Count 1.14 X10^3/uL (0.83-4.51); Absolute Neutrophil Count 8.8 X10^3/uL (2.0-7.7); Basophil# 0.06 X10^3/uL; Basophil% 0.5 % (0-1); Eosinophil# 0.12 X10^3/uL; Hematocrit 40.9 % (37-47); Hemoglobin 14.2 g/dL (12.0-15.0); Lymphocyte # 1.14 X10^3/ul (0.83-4.51); Mean Corp Hgb Conc 34.7 g/dL (32-36); Mean Corpuscular Hgb 31.1 pg (27.0-32.0); Mean Corpuscular Volume 89.7 fL (81-99); Mean Platelet Vol. 10.7 fl (6.2-12.0); Monocyte# 1.27 X10^3/uL; Monocyte% 11.1 % (0-10); NRBC Flagged by Analyzer 0 % (0-5); Neutrophil # 8.82 X10^3/uL (2.7-7.7); Neutrophil % 77.1 % (47-70); Platelet Count 288 K/mm3 (150-450); RBC Distribution Width CV 12.8 % (11.6-14.6); RBC Distribution Width SD 42.2 fl (35.1-43.9); Red Blood Count 4.56 M/mm3 (4.2-5.4); White Blood Count 11.5 K/mm3 (4.4-11.0)
[2021-11-11 11:17] LABS: ALB/GLOB Ratio 1.1 RATIO (0.9-2.4); AST(SGOT) 127 U/L (15-37); Alanine Aminotransfer ALT/SGPT 171 U/L (13-56); Albumin, Serum 3.3 g/dL (3.2-5.0); Alkaline Phosphatase 227 U/L (45-117); Amylase 41 U/L (25-115); Anion Gap 6 (5-15); BUN 16 mg/dL (7-18); BUN/Creat Ratio 20.5 RATIO (10-20); CPK Total, Creatine Kinase 35 U/L (26-192); Calcium,Total 8.7 mg/dL (8.5-10.1); Chloride 100 mmol/L (98-107); Creatinine, Serum 0.78 mg/dL (0.55-1.02); EST Glomerular Filtration Rate 81 mL/min (>60); Est Glom Filt Rate - Afr Amer 98 mL/min (>60); Globulin 3.1 g/dL (2.2-4.2); Glucose 100 mg/dL (74-106); Potassium 3.5 mmol/L (3.5-5.1); Protein, Total 6.4 g/dL (6.4-8.2); Sodium Level 137 mmol/L (136-145)
[2021-11-11 11:42] LABS: Hepatitis B Surface Antibody Reactive
[2021-11-12 03:07] LABS: HEPATITIS B SURFACE AG Negative (Negative); Hepatitis A IgM Antibody Negative (Negative); Hepatitis B Core AB IgM Negative (Negative)
[2021-11-12 14:36] LABS: Hep C Antibodies >11.0 s/co ratio (0.0-0.9); Hepatitis A AB, Total Positive (Negative)
== END 2021-11-11 23:59 | disposition home or self-care (01) ==
LOC: LABSPEC 10:48
PROVIDERS: PCP Internal Medicine; Visit Provider Internal Medicine
DX: M79.10 Myalgia, unspecified site (principal); R74.8 Abnormal levels of other serum enzymes; R19.7 Diarrhea, unspecified; R11.2 Nausea with vomiting, unspecified
CPT/HCPCS: 80053; 80074; 82150; 82550; 85025; 86706; 86708

== ENCOUNTER 2021-11-12 09:27 | Outpatient (CLI) | payer MEDICARE, SELFPAY ==
--- NOTE | 2021-11-12 09:30 | US_ITS ---
STUDY: ABDOMINAL ULTRASOUND - RIGHT UPPER QUADRANT REASON FOR VISIT: Female, 56 years old ELEVATED LIVER ENZYMES TECHNIQUE: Ultrasound evaluation of the right upper quadrant was performed with real-time and static jackman-scale imaging. TECHNICAL QUALITY: Adequate. COMPARISON: None. FINDINGS: Liver: The liver measures 15.3 cm. There is increased echogenicity consistent with fatty infiltration. The bile ducts are within normal limits. There is hepatic color flow. The direction of portal flow is hepatopetal. There is no demonstrated mass lesion. Gallbladder: Normal distended gallbladder. The gallbladder wall measures 2.1 mm. There is a negative sonographic Amado''s sign. There is no pericholecystic fluid. There are no gallstones. Common Bile Duct (C.B.D.): The common bile duct measures 6.1 mm. Pancreas: Normal size of the head, body and tail of the pancreas. There is normal echogenicity of the pancreas. There is no demonstrated pancreatic mass or cyst. Right Kidney: Normal size of the right kidney. The right kidney measures 11.9 cm x 4.8 cm x 3.8 cm. Normal renal cortex. The right cortex measures 1.3 cm. There is no demonstrated renal mass or cyst. There is no right hydronephrosis. US/Liver IMPRESSION: Fatty infiltration of the liver. Electronically Signed: Tad Benjamin MD at 10:46 EST ,
== END 2021-11-12 23:59 | disposition home or self-care (01) ==
LOC: US 09:28
PROVIDERS: PCP Internal Medicine; Referring Provider Internal Medicine; Visit Provider Internal Medicine
DX: R74.8 Abnormal levels of other serum enzymes (principal)
CPT/HCPCS: 76705

== ENCOUNTER 2021-12-03 06:01 | Day surgery (SDC) | payer MEDICARE, SELFPAY ==
--- NOTE | 2021-12-03 | TESH_PTH ---
PATIENT: QUINTIN DAVID LOC: [facility] [place][id number] AGE/SX: 56/F ROOM: RE12/03/[address]: Dr. Kolby Palacio DPM : 1965 BED: DIS: 12/03/2021 SPEC #: [id number] RECD: 12/03/21 13:15 STATUS: ISABELLA REYuliana #: [id number] SPENCER: 12/03/21 00:[address]: Kolby Palacio DEPT: SURGICAL PATHOLOGY RECD BY: Chris Blas ENTERED: 12/06/21 09:11 SP TYPE: TENDON OTHR DR: Dr. Daisy Escobar, DO Tissues: Tendon and tendon sheath, NOS Procedures: Decalcification bone/plaque Surgery Specimen Level III HEADER OPERATION: Attach and reattach Achilles? 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 YISEL:carey 12/09/2021 MICROSCOPIC DESCRIPTION Slides are reviewed. GROSS DESCRIPTION Received in fixative is one container labeled with the patient's name and designated Devon's deformity and Achilles? tendon, left. The specimen consists of multiple pieces of garrett, indurated tissue that in aggregate measure 5.5 x 4 x 1 cm. Also present in the container is a piece of bone measuring 3.5 x 3 x 1 cm. Travel Ticketing Reviewer sections are submitted in two cassettes as follows: 1 ? soft tissue, 2 ? bone after decalcification. / YISEL:carey 12/06/2021 TC:5 CPT: 65608, 94334
[2021-12-03 06:27] VITALS: BMI 22.5
[2021-12-03] MEDS: Lactated Ringers 1,000 ML 15 ML IV (06:32)
--- NOTE | 2021-12-03 07:32 | PCM.DC ---
Discharge Instructions Diet Discharge Diet: Light diet - advance as tolerated Activity Weight Bearing Status: No weight bearing (No weightbearing left foot) Keep extremity elevated above heart level: Left Leg (Keep left foot elevated with pillows (with pressure off of heel) for at least 50 minutes of every hour.) Dressing / Incision Call your doctor if your incision/area has: Continuous Slow Oozing, Sudden Increased Bleeding and Foul Smelling Discharge Call your doctor if you observe: Fever of 101 or Higher, Coldness, Increased Pain, Shortness of breath, Chest pain, Increased palpitations (irregular heartbeat), Calf discomfort and Uncontrolled pain Change Dressing in: leave in place till F/U Remove Dressing in: leave in place till F/U Cleanse incision/area with: Do not get Incision Wet and Keep Dressing Clean & Dry Follow Up Care Please Follow Up With: Kolby Palacio DPM When: within 1 week after surgery [facility], sooner if needed Office number: [phone] Dr. Palacio Pager/ Test Results: Test results from this visit will be discussed in further detail at your follow-up appointment, if applicable. Discharge Plan Admission Attending Provider: Kolby Palacio Primary Care Provider: Daisy Escobar Discharge Orders/Prescriptions Prescriptions: No Action rosuvastatin 5 mg tablet 10 mg PO DAILY RF: 0 cholecalciferol (vitamin D3) 25 mcg (1,000 unit) capsule 25 mcg PO DAILY RF: 0 arginine (L-arginine) 500 mg capsule 500 mg PO DAILY RF: 0 milk thistle 150 mg capsule 150 mg PO DAILY RF: 0 biotin 1 mg capsule 1 mg PO DAILY RF: 0 indapamide 2.5 MG tablet 2.5 mg PO DAILY RF: 0 lisinopril 20 MG tablet 20 mg PO DAILY RF: 0 dextroamphetamine-amphetamine 10 MG capsule,extended release 24hr 10 mg PO 0800 RF: 0 dextroamphetamine-amphetamine 10 mg Tablet 10 mg PO 1400 RF: 0 Referrals / Follow Up: Daisy Escobar DO [Primary Care Provider] - Disposition Disposition (needs filled in before D/C Order can be placed): Home, Self Care
[2021-12-03 07:34] LABS: Absolute Lymphocyte Count 1.59 X10^3/uL (0.83-4.51); Absolute Neutrophil Count 5.6 X10^3/uL (2.0-7.7); Basophil# 0.07 X10^3/uL; Basophil% 0.8 % (0-1); Eosinophil# 0.16 X10^3/uL; Eosinophils% 1.9 % (0-5); Hematocrit 39.7 % (37-47); Hemoglobin 13.9 g/dL (12.0-15.0); Lymphocyte # 1.59 X10^3/ul (0.83-4.51); Lymphocyte % 19.2 % (19-41); Mean Corpuscular Hgb 30.8 pg (27.0-32.0); Mean Platelet Vol. 10.7 fl (6.2-12.0); Monocyte# 0.86 X10^3/uL; Monocyte% 10.4 % (0-10); NRBC Flagged by Analyzer 0 % (0-5); Neutrophil # 5.57 X10^3/uL (2.7-7.7); Neutrophil % 67.6 % (47-70); Platelet Count 247 K/mm3 (150-450); RBC Distribution Width CV 12.6 % (11.6-14.6); RBC Distribution Width SD 40.8 fl (35.1-43.9); Red Blood Count 4.51 M/mm3 (4.2-5.4); White Blood Count 8.3 K/mm3 (4.4-11.0)
--- NOTE | 2021-12-03 07:37 | RAD_ITS ---
STUDY: X-RAY - LEFT CALCANEUS REASON FOR EXAM: Female, 56 years old. Intraoperative digital documentation views of Achilles repair. TECHNIQUE: 2 intraoperative digital view(s) of the calcaneus were obtained. COMPARISON: None. FINDINGS: 2 intraoperative digital documentation views. 3 images acquired. Total exposure time 3 seconds. Longest single exposure 1 second. Total DAP 0.2564 cGy/cm2. Total Air Kerma 0.0153 mGy. RAD/Calcaneus min 2 Views IMPRESSION: Intraoperative digital documentation views as described. Electronically Signed: Asher Whitaker MD at 10:46 EST ,
[2021-12-03] MEDS: Cefazolin 2 GM in 0.9% Normal Saline 100 ML IV (07:39)
[2021-12-03 07:45] LABS: AST(SGOT) 19 U/L (15-37); Alanine Aminotransfer ALT/SGPT 31 U/L (13-56); Albumin, Serum 3.3 g/dL (3.2-5.0); Alkaline Phosphatase 61 U/L (45-117); Anion Gap 3 (5-15); BUN 19 mg/dL (7-18); BUN/Creat Ratio 24.8 RATIO (10-20); Calcium,Total 9.3 mg/dL (8.5-10.1); Chloride 105 mmol/L (98-107); Creatinine, Serum 0.77 mg/dL (0.55-1.02); EST Glomerular Filtration Rate 83 mL/min (>60); Est Glom Filt Rate - Afr Amer 100 mL/min (>60); Estimated Creatinine Clearance 81.32 ml/min; Globulin 3.3 g/dL (2.2-4.2); Glucose 101 mg/dL (74-106); Potassium 3.6 mmol/L (3.5-5.1); Protein, Total 6.6 g/dL (6.4-8.2); Sodium Level 136 mmol/L (136-145)
[2021-12-03] MEDS: Bupivacaine Mpf 0.5% 30 ML VIAL (08:10)
[2021-12-03 09:16] VITALS: BP 104/68; BP 107/68; PULSE 87; RESP 16; TEMP 36.1; O2SAT 100
[2021-12-03 09:30] VITALS: BP 107/68; BP 94/67; PULSE 78; RESP 16; O2SAT 98
--- NOTE | 2021-12-03 09:36 | OP.PCM_ITS ---
Report of Operation Date of Procedure: 12/03/21 Pre-Operative Diagnosis: Retrocalcaneal exostosis/Devon's deformity, Achilles tendinopathy - left Post-Operative Diagnosis: Same Surgery/Procedure Performed:: Resection of retrocalcaneal exostosis/Devon's deformity, detrach/reattach achilles tendon with achilles tendon debridement/repair - left Surgeon: Kolby Palacio recreation program specialist: Type of Anesthesia: General and Local Specimen's removed: Debrided achilles tendon and devon's deformity/retrocalcaneal exostosis left sent to pathology Estimated Blood Loss (mL): 1mL Description of Procedure: Indications: This is a 56 year old female with chronic left heel pain, to the posterior heel and achilles tendon, despite extensive conservative/nonsurgical management. She continues to have pain and symptoms. Xrays showed retrocalcaneal exostosis/spur with Devon's Deformity, which are very painful. She continues to have pain which was really bothering her and affecting her daily activities. Because symptoms persist, she has elected to undergo detach/reattach Achilles tendon with resection of the retrocalcaneal spur and Devon's Deformity/retrocalcaneal spur. MRI was reviewed pre op. The procedures were discussed with her in great detail, reviewed the possible benefits vs risks and potential complications. Typical post op recovery was reviewed with her. The goals and the expectations were reviewed with her in detail. The consent forms were reviewed with her in detail, and she freely signed them. No guarantees were given or implied. All of her questions were answered. Operative Procedure: The patient was brought back into the operating room. A time out was performed and the patient was properly identified and the surgical plan was confirmed. The patient received 2g of IV Ancef for antibiotic prophylaxis. A well padded pneumatic tourniquet was applied around the left thigh. The patient received general per the anesthesiologist. The patient was placed on the operating room table in the prone position, with good padding and offloading for all of the bony prominences. She was carefully secured to the operating room table with a safety belt around her waist. The left foot/ankle/leg were scrubbed, prepped, draped in the usual aseptic fashion. The left foot was elevated for 3 minutes and the left thigh pneumatic tourniquet was inflated to 300mmHg. Attention was directed to the posterior heel. There was a large palpable exostosis present at the level of the posterior calcaneus consistent with Devon's deformity as well as retrocalcaneal exostosis, and thickened achilles tendon was present as well. A linear incision was made using a 15 blade to the posterior aspect of the distal Achilles tendon and posterior calcaneus. Careful blunt dissection was completed down through the subcutaneous tissue layer, down to the Achilles tendon and posterior calcaneus. The Achilles tendon was intact, but was significantly thickened with calcification within the tendon, the tendon was yellow with degeneration noted. The distal Achilles tendon was incised at the level of the distal midline, and was partially reflected off of the central posterior calcaneus exposing the retrocalcaneal spur and Devon deformity. The retrocalcaneal spur and the Devon deformity were resected using a powered sagittal saw and a powered rasp, the resected bone was sent to pathology. The achilles tendon was debulked removing the calcification and tendinosis using a 15 blade. Intraoperative fluoroscopy was obtained confirming proper resection of the spur and Devon deformity. The site was flushed out with copious amounts of normal saline solution. The Achilles tendon was reattached to the central portion of the posterior calcaneus using 1 Arthrex Speedbridge in standard fashion. 2 pilot boat operator holes were created for the 4.75mm BioComposite Swivelock anchors at the level of 1 cm proximal to the distal insertion of the Achilles tendon and central to each half of the tendon. The pilot boat operator holes were tapped with the 4.75mm tap. The two 4.75mm BioComposite Swivel anchors were inserted. The suture was passed through the Achilles tendon on each side. The 2 distal holes were prepared on the posterior calcaneus distal to the insertion of the Achilles tendon with the drill and then the tap. One suture tail from each of the proximal anchors were retrieved and passed through the 2 SwiveLock anchors. The tension was adjusted to the appropriate tension and the 4.75 mm Swivelock anchors were inserted into the distal prepared bone sites. The suture tails were cut flush with the Swivelock anchors. The Swivelock anchors were flush with the bone. The FiberWire suture from each Swivelock anchor was also passed through the Achilles tendon and tied for extra stability and repair. 3-0 Vicryl was also used to reapproximate the midline Achilles tendon incision. There was excellent repair of the Achilles tendon, with negative Hauser test. The surgical site was flushed out with copious amounts of normal saline solution. The subcutaneous tissue layer was reapproximated using 3-0 Vicryl. the skin was reapproximated using 4-0 Monocryl. The pneumatic tourniquet was deflated at 56 minutes, there was immediate return of warmth and perfusion to the foot and to all toes on the foot with normal temperature present. CFT < 2 seconds to all toes. 20mL of 0.5% bupivacaine plain was given as a local nerve block around the surgical site. A dressing was applied which consisted of Cavilon to the sutured skin incision edges, and then steristrips, Betadine soaked adaptic, 4x4 gauze, Kerlix and chang bandage, and a well padded below the knee posterior splint with heel offloaded. The patient tolerated the above operative procedure well at the anesthesia well with no complication. The patient was transported to the recovery room with vital signs stable and in good condition. Post operative orders were placed. Post operative instructions were reviewed with her as well as with her who was present with her today. No weightbearing left foot, keep left foot elevated for at least 50 minutes of every hour, keep dressing clean, dry and intact. Prescription for oxycodone 5mg was prescribed: 1-2 tabs PO q 6 hours PRN pain for pain control, and aspirin 325mg PO once a day. New cbc and cmp labs were ordered and reviewed. WBC normal and liver enzymes normal. She is to follow up with me within 1 week or sooner if needed. Post operative xrays were obtained in the recovery room which confirmed resect ion of the left retrocalcaneal spur and Devon deformity, otherwise no acute changes with no post operative complications. Grafts/Implants Used: Arthrex Speedbridge
[2021-12-03 09:45] VITALS: BP 107/68; BP 97/82; PULSE 76; RESP 16; O2SAT 98
--- NOTE | 2021-12-03 09:49 | RAD_ITS ---
STUDY: X-RAY - LEFT FOOT CLINICAL: Female, 56 years old. post op TECHNIQUE: 3 view(s) of the foot. COMPARISON: None. FINDINGS: Normal talus, calcaneus, and tarsal bones. Status post resection of the calcaneus at the Achilles tendon insertion. Normal visualized subtalar, talonavicular, calcaneocuboid, tarsal and tarsometatarsal articulations. Normal metatarsi. Normal metatarsophalangeal joint of the great toe. Normal tibial and fibular sesamoid bones. Normal interphalangeal joint of the great toe. Normal phalanges of the great toe. Normal second through fifth metatarsophalangeal joints. Normal interphalangeal joints and phalanges of the lesser toes. Fiberglass cast obscures soft tissue and bony detail. RAD/Foot min 3 Views IMPRESSION: Postoperative changes to the posterior calcaneus. Electronically Signed: Carson Borden MD at 14:29 EST ,
[2021-12-03 09:53] VITALS: BP 107/68; BP 99/70; PULSE 68; RESP 16; TEMP 36.2; O2SAT 98
[2021-12-03] MEDS: oxyCODONE 5 MG Tablet PO (10:37)
[2021-12-03 10:46] VITALS: BP 107/68; BP 114/68; PULSE 85; RESP 16; TEMP 36.1; O2SAT 96
== END 2021-12-03 23:59 | disposition home or self-care (01) ==
LOC: SDC 06:06 → AC 06:08
PROVIDERS: PCP Internal Medicine; Referring Provider Podiatrist; Visit Provider Podiatrist
PROC: (CPT 28119; principal; 2021-12-03 07:15)
DX: M76.62 Achilles tendinitis, left leg (principal); M89.8X7 Other specified disorders of bone, ankle and foot; M92.62 Juvenile osteochondrosis of tarsus, left ankle; M77.52 Other enthesopathy of left foot and ankle; G89.29 Other chronic pain; Z20.822 Contact with and (suspected) exposure to COVID-19; I11.9 Hypertensive heart disease without heart failure; E78.5 Hyperlipidemia, unspecified; M81.0 Age-related osteoporosis without current pathological fracture; Z78.0 Asymptomatic menopausal state; Z87.891 Personal history of nicotine dependence
CPT/HCPCS: 28119; 27654; 73630; 73650; 76000; 80053; 85025; 87426; 88304; 88311; C9803; J7120; J2405

== ENCOUNTER → 2022-03-03 | Outpatient (CLI) | payer MEDICARE, SELFPAY ==
[2022-03-03 11:35] LABS: Vista UDS pH Range 5
[2022-03-03 11:45] LABS: Amphetamine Urine VISTA NEGATIVE (<1000 ng/mL); Barbiturate Urine VISTA NEGATIVE (< 200 ng/mL); Benzodiazepine Urine VISTA NEGATIVE (< 200 ng/mL); Cocaine Urine VISTA NEGATIVE (< 300 ng/mL); Ecstacy Urine VISTA NEGATIVE (< 500 ng/mL); Methadone Urine VISTA NEGATIVE (< 300 ng/mL); PCP Urine VISTA NEGATIVE (< 25 ng/mL); THC Urine VISTA NEGATIVE (< 50 ng/mL)
== END | disposition home or self-care (01) ==
PROVIDERS: PCP Internal Medicine; Referring Provider Anesthesiology Pain Medicine; Visit Provider Anesthesiology Pain Medicine
DX: F11.20 Opioid dependence, uncomplicated (principal)
CPT/HCPCS: 80307

== ENCOUNTER → 2022-03-22 | Outpatient (CLI) | payer MEDICARE, SELFPAY ==
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
== END | disposition home or self-care (01) ==
LOC: CT 10:08
PROVIDERS: PCP Internal Medicine; Referring Provider Internal Medicine; Visit Provider Internal Medicine
DX: S09.8XXA Other specified injuries of head, initial encounter (principal); R51.9 Headache, unspecified
CPT/HCPCS: 70450

== ENCOUNTER → 2022-09-15 | Outpatient (CLI) | payer MEDICARE, SELFPAY ==
[2022-09-15 16:11] LABS: Amphetamine Urine VISTA NEGATIVE (<1000 ng/mL); Barbiturate Urine VISTA NEGATIVE (< 200 ng/mL); Benzodiazepine Urine VISTA NEGATIVE (< 200 ng/mL); Cocaine Urine VISTA NEGATIVE (< 300 ng/mL); Ecstacy Urine VISTA NEGATIVE (< 500 ng/mL); Methadone Urine VISTA NEGATIVE (< 300 ng/mL); PCP Urine VISTA NEGATIVE (< 25 ng/mL); THC Urine VISTA NEGATIVE (< 50 ng/mL); Vista UDS pH Range 6
== END | disposition home or self-care (01) ==
LOC: LAB 15:16
PROVIDERS: PCP Internal Medicine; Referring Provider Anesthesiology Pain Medicine; Visit Provider Anesthesiology Pain Medicine
DX: F11.20 Opioid dependence, uncomplicated (principal)
CPT/HCPCS: 80307

== ENCOUNTER → 2022-10-04 | Outpatient (CLI) | payer MEDICARE, SELFPAY ==
--- NOTE | 2022-10-04 08:26 | CT_ITS ---
STUDY: CT SCAN LOWER EXTREMITY LEFT REASON FOR EXAM: Female, 57 years old. Left hip replacement.[facility] protocol. RADIATION DOSAGE (If Supplied By Facility): CTDIvol = ( 18.65 ) mGy, DLP = ( 2260.67 ) mGycm. Individualized dose optimization techniques were used for this CT.? TECHNIQUE: Multiple axial tomographic images of the left lower extremity was obtained without intravenous contrast administration. Coronal and sagittal reconstruction was obtained as well. COMPARISON: None. FINDINGS: Imaging of the left hip joint was obtained. No significant abnormality is seen. Imaging of the left knee joint pain. Marked in degree of the joint space narrowing involving the medial compartment of the knee joint with degenerative spur formation along the medial femoral condyle as well as the anterior femoral condyle. Moderate degree of the patellofemoral osteoarthritis. Imaging of the ankle joint was obtained. No significant abnormality is seen. CT/Extremity Lower without Contra IMPRESSION: Moderate degree of joint space narrowing and degenerative spur formation along the medial compartment of the knee joint. Electronically Signed: Tad Benjamin MD at 15:44 EST ,
== END | disposition home or self-care (01) ==
PROVIDERS: PCP Internal Medicine; Visit Provider Orthopaedic Surgery
DX: M17.12 Unilateral primary osteoarthritis, left knee (principal)
CPT/HCPCS: 73700

== ENCOUNTER → 2022-10-13 | Outpatient (CLI) | payer MEDICARE, SELFPAY ==
[2022-10-13 13:04] LABS: Absolute Lymphocyte Count 2.42 X10^3/uL (0.83-4.51); Absolute Neutrophil Count 4.1 X10^3/uL (2.0-7.7); Basophil# 0.06 X10^3/uL; Basophil% 0.8 % (0-1); Eosinophil# 0.19 X10^3/uL; Eosinophils% 2.4 % (0-5); Hematocrit 40.4 % (37-47); Hemoglobin 13.9 g/dL (12.0-15.0); Lymphocyte # 2.42 X10^3/ul (0.83-4.51); Mean Corp Hgb Conc 34.4 g/dL (32-36); Mean Corpuscular Volume 87.1 fL (81-99); Mean Platelet Vol. 10.4 fl (6.2-12.0); Monocyte# 1.04 X10^3/uL; Monocyte% 13.3 % (0-10); NRBC Flagged by Analyzer 0 % (0-5); Neutrophil # 4.07 X10^3/uL (2.7-7.7); Neutrophil % 52.2 % (47-70); Platelet Count 287 K/mm3 (150-450); RBC Distribution Width CV 13.8 % (11.6-14.6); RBC Distribution Width SD 43.8 fl (35.1-43.9); Red Blood Count 4.64 M/mm3 (4.2-5.4); White Blood Count 7.8 K/mm3 (4.4-11.0)
[2022-10-13 13:21] LABS: Hemoglobin A1c 5.5 % (3.8-5.6)
[2022-10-13 13:42] LABS: Albumin, Serum 3.7 g/dL (3.2-5.0); Anion Gap 6 (5-15); BUN 21 mg/dL (7-18); BUN/Creat Ratio 28.5 RATIO (10-20); Calcium,Total 9.1 mg/dL (8.5-10.1); Chloride 98 mmol/L (98-107); Creatinine, Serum 0.74 mg/dL (0.55-1.02); EST Glomerular Filtration Rate 86 mL/min (>60); Est Glom Filt Rate - Afr Amer 104 mL/min (>60); Glucose 90 mg/dL (74-106); Potassium 3.5 mmol/L (3.5-5.1); Sodium Level 133 mmol/L (136-145)
== END | disposition home or self-care (01) ==
PROVIDERS: PCP Internal Medicine; Referring Provider Orthopaedic Surgery; Visit Provider Orthopaedic Surgery
DX: Z01.810 Encounter for preprocedural cardiovascular examination (principal); Z01.818 Encounter for other preprocedural examination; R73.09 Other abnormal glucose
CPT/HCPCS: 36415; 80048; 82040; 83036; 85025; 93005

== ENCOUNTER 2022-10-18 11:20 | Day surgery (SDC) | payer MEDICARE, SELFPAY ==
--- NOTE | 2022-10-18 11:57 | PCM.HP.BLA ---
History and Physical Date of Admission: 10/18/22 57 F who presents to the office today for f/u recurrent episodes of vomiting and diarrhea which she associates with back injections for chronic pain. The first two episodes occurred right after the injections, but the most recent episode didn't occur until 2 wks later. That time she felt she was literally going to ; she had legs cramps and weakness, nausea, vomiting, diarrhea, abdominal cramping. She reports she has high anxiety re needles due to remote past hx of bad experiences with needles. She says she doesn't normally have nausea, vomiting, dysphagia, abd pain, diarrhea, constipation. She tried acupuncture w/o relief before that last injection. No relief with lomotil when she had diarrhea after one of the prior episodes. She reports normal stool tests after last episode. Per Dr Thorpe's last note: differential diagnosis for her would include IBS with diarrhea, microscopic colitis, celiac disease.? However she only gets symptoms when she has a steroid injection in her back.? There are instances of steroid induced pancreatitis that can cause her symptoms. Medical history includes HCV infection late 1989?s with subsequent treatment through [facility]; results of tattoos in the 1979?s when she was in the [employer]. PCP has been monitoring this with routine bloodwork. She is happy with this situation and would like to continue with PCP monitoring viral loads. ROS Const Constitutional: Positive for weakness; No fatigue ENT ENT: No difficulty swallowing Gastro GI: No abdominal pain, belching, bloating, change in bowel habits, change in stool character, coffee ground emesis, constipation, cramping, diarrhea, heartburn, difficulty swallowing, feeling full early, excessive flatus, incontinent of stools, Vomiting blood/hematemesis, Blood in stool, loose stools, Black,tarry stools, nausea/dyspepsia, pain with swallowing, vomiting or other Musc Musculoskeletal: Positive for abnormal gait, joint pain, back pain, joint swelling, muscle cramps, muscle weakness, numbness, stiffness, tingling, Arthritis and sciatica Skin Skin: No yellowing of the eye or itchy eyes Neuro Neurology: Positive for abnormal gait, weakness, numbness, tingling and paralysis Psych Psychiatric: Positive for anxiety and Positive for depression Endo Endocrine: No fatigue Aller/Imm Allergy/Immunologic: No itchy eyes [place]/Lymp Hematologic/Lymphatic: No easy bleeding or easy bruising Exam Const General: cooperative, healthy appearing and anxious Nutritional Appearance: average body habitus Orientation: alert, awake and oriented x3 Quality Reporting Tobacco Screening ([facility] 138) Smoking Status: Former smoker Assessment and Plan Assessment and Plan (1) Nausea and vomiting: ?Status:?Acute ?Plan: Recurrent episodes of vomiting and diarrhea that patient relates to steroid injections for chronic back pain. The most recent episode didn't occur until 2 wks after the injection. We discussed this could be IBS due to anxiety regarding needles, but that doesn't explain the delay in symptoms. Will proceed with EGD and colonoscopy to eval further. (2) Diarrhea: ?Status:?Acute ?Plan: as above I have examined the patient and the H&P has been reviewed. There are no clinical changes since date of exam.
[2022-10-18 12:01] VITALS: BP 116/66; PULSE 85; RESP 18; TEMP 36.7; O2SAT 98; BMI 23.1
[2022-10-18] MEDS: Lactated Ringers 1,000 ML 15 ML IV (12:06)
--- NOTE | 2022-10-18 12:30 | IMM_PTH ---
PATIENT: QUINTIN DAVID LOC: [facility] U#:[id number] AGE/SX: 57/F ROOM: RE10/18/[address]: Dr. Edwin Thorpe DO : 1965 BED: DIS: 10/18/2022 SPEC #: [id number] RECD: 10/19/22 13:27 STATUS: ISABELLA REQ #: [id number] SPENCER: 10/18/22 12:[address]: Edwin Thorpe DEPT: IMMUNOHISTOCHEMISTRY RECD BY: Yeni Lake ENTERED: 10/19/22 13:28 SP TYPE: IMMUNO OTHR DR: Dr. Daisy Escobar DO Tissues: B - Stomach, NOS Procedures: H Pylori (initial) PHYSICIAN & INSTITUTION [place] [id number] SPECIMEN INFORMATION: Tissue Source: B ? Gastric body Clinical Info: Nausea, vomiting, diarrhea Specimen Number: [id number] CPT code: 08853 METHODOLOGY: Deparaffinized sections of prefer/formalin-fixed tissue or PAP/DQ stained slides are incubated with monoclonal/polyclonal antibodies/oligonucleotide probes. Localization is made via biotin free immunoperoxidase method. Appropriate controls are performed and reacted as expected. Results on target cell population are indicated in the following table: RESULTS: ANTIBODY / CLONE RESULT Block B H Pylori (polyclonal) negative These tests were developed and their performance characteristics determined by [facility]. They may not have been cleared or approved by the U.S. Food and Drug Administration. The FDA has determined that such clearance or approval is not necessary. The above immunohistochemical/dualISH markers are ordered and reviewed by the Pathologist. INTERPRETATION: B. Gastric body, biopsy: Negative for Helicobacter pylori organisms. AM:carey 10/20/2022
--- NOTE | 2022-10-18 12:30 | COLBX_PTH ---
PATIENT: QUINTIN DAVID LOC: [facility] U#:[id number] AGE/SX: 57/F ROOM: RE10/18/[address]: Dr. Edwin Thorpe DO : 1965 BED: DIS: 10/18/2022 SPEC #: [id number] RECD: 10/18/22 16:54 STATUS: ISABELLA DUC #: [id number] SPENCER: 10/18/22 12:[address]: Edwin Thorpe DEPT: SURGICAL PATHOLOGY RECD BY: Kathy Engel ENTERED: 10/19/22 09:51 SP TYPE: COLON BX OTHR DR: Dr. Daisy Escobar DO Tissues: A - Duodenum, NOS B - Gastric mucous membrane C - Esophagus, NOS D - Ileum, NOS E - Cecum, NOS Procedures: Special Stain Group II Surgery Specimen Level IV Alcian Blue/PAS (control) HEADER OPERATION: Colonoscopy, [place] PRE-OP DIAGNOSIS: Nausea, vomiting, diarrhea TISSUE SUBMITTED: A ? Duodenum biopsy, B ? Gastric body biopsy, C ? Distal esophagus biopsy, D -Terminal ileum biopsy, E ? Cecal polyp biopsy MICROSCOPIC DIAGNOSIS A. Duodenum, biopsy: No pathologic change. B. Gastric body, biopsy: Mild chronic gastritis. See comment. C. Distal esophagus, biopsy: Fragments of gastric mucosa with chronic inflammation. No evidence of goblet cell metaplasia. See comment. D. Terminal ileum, biopsy: No pathologic change. E. Cecal polyp, biopsy: Fragments of tubular adenoma. AM:carey 10/20/2022 COMMENT B. The results of immunohistochemistry for Helicobacter pylori will be reported separately ([id number]). C. Alcian blue/PAS stain with matched control supports the above diagnosis. MICROSCOPIC DESCRIPTION Slides are reviewed. GROSS DESCRIPTION A - Received in fixative is one container labeled with the patient's name and designated duodenum biopsy. The specimen consists of multiple irregular fragments of light garrett soft tissue that in aggregate measure 1 x 0.5 x 0.1 cm. The specimen is totally submitted in one cassette. B - Received in fixative is one container labeled with the patient's name and designated gastric body biopsy. The specimen consists of multiple irregular fragments of light garrett soft tissue that in aggregate measure 1 x 0.3 x 0.1 cm. The specimen is totally submitted in one cassette. C - Received in fixative is one container labeled with the patient's name and designated distal esophagus biopsy. The specimen consists of two irregular fragments of light garrett soft tissue that in aggregate measure 0.5 x 0.5 x 0.1 cm. The specimen is totally submitted in one cassette. D - Received in fixative is one container labeled with the patient's name and designated terminal ileum biopsy. The specimen consists of one irregular fragment of light garrett soft tissue that measures 0.5 x 0.3 x 0.1 cm. The specimen is totally submitted in one cassette. E - Received in fixative is one container labeled with the patient's name and designated cecal polyp biopsy. The specimen consists of multiple irregular fragments of light garrett soft tissue that in aggregate measure 0.6 x 0.3 x 0.1 cm. The specimen is totally submitted in one cassette. / AM:carey 10/19/2022 TC:3 CPT: 28706 x5, 03226
[2022-10-18 13:20] VITALS: BP 113/99; BP 116/66; PULSE 76; RESP 18; TEMP 36.4; O2SAT 100
--- NOTE | 2022-10-18 13:20 | OP.CCLET_ITS ---
10/18/2022 Daisy Escobar Re : Upper GI endoscopy procedure for Mallika Escobar This procedure was performed on Tuesday, October 18, 2022. My impressions and recommendations are as follows: Impressions : - Z-line irregular, 37 cm from the incisors. Biopsied. - Erythematous mucosa in the gastric body. Biopsied. - One non-bleeding duodenal ulcer with no stigmata of bleeding. Biopsied. - [Number of Biopsies] biopsies were obtained [Site]. Recommendations : - Discharge patient to home. - Resume previous diet. - Continue present medications. - Await pathology results. - Repeat upper endoscopy in 3 months for surveillance. My findings are described in the full procedure note, which is enclosed. If I can be of further assistance, please feel free to contact me at . Sincerely, Edwin Friend, 10/18/2022 1:19:45 PM This report has been signed electronically.
--- NOTE | 2022-10-18 13:20 | OP.EGD_ITS ---
Patient Name: Mallika Shukla Procedure Date: 10/18/2022 12:29 PM Date of : 1965 Age: 57 Procedure: Upper GI endoscopy Indications: Epigastric abdominal pain, Iron deficiency anemia Providers: Edwin Thorpe DO Medicines: Monitored Anesthesia Care Patient Profile: This is a 57 year old female. Refer to note in patient chart for documentation of history and physical. Patient has symptoms of acute epigastric abdominal pain. Complications: No immediate complications. Procedure: Pre-Anesthesia Assessment: - Prior to the procedure, a History and Physical was performed, and patient medications and allergies were reviewed. The risks and benefits of the procedure and the sedation options and risks were discussed with the patient. All questions were answered and informed consent was obtained. Patient identification and proposed procedure were verified by the physician. Mental Status Examination: alert and oriented. Airway Examination: normal oropharyngeal airway and neck mobility. Respiratory Examination: clear to auscultation. CV Examination: normal. Prophylactic Antibiotics: The patient does not require prophylactic antibiotics. Prior Anticoagulants: The patient has taken no previous anticoagulant or antiplatelet agents. ASA Grade Assessment: II - A patient with mild systemic disease. After reviewing the risks and benefits, the patient was deemed in satisfactory condition to undergo the procedure. The anesthesia plan was to use moderate sedation / analgesia (conscious sedation). Immediately prior to administration of medications, the patient was re-assessed for adequacy to receive sedatives. The heart rate, respiratory rate, oxygen saturations, blood pressure, adequacy of pulmonary ventilation, and response to care were monitored throughout the procedure. The physical status of the patient was re-assessed after the procedure. After obtaining informed consent, the endoscope was passed under direct vision. Throughout the procedure, the patient's blood pressure, pulse, and oxygen saturations were monitored continuously. The pediatric colonoscope was introduced through the mouth, and advanced to the second part of duodenum. The upper GI endoscopy was accomplished without difficulty. The patient tolerated the procedure well. Scope In: 12:43:30 PM Scope Out: 12:48:56 PM Total Procedure Duration Time 0 hours 5 minutes 26 seconds Findings: The Z-line was irregular and was found 37 cm from the incisors. Biopsies were taken with a cold forceps for histology. Verification of patient identification for the specimen was done. [Number of Biopsies] biopsies were obtained with cold forceps for histology [Pattern] [Site]. Patchy mildly erythematous mucosa without bleeding was found in the gastric body. Biopsies were taken with a cold forceps for histology. Verification of patient identification for the specimen was done. Estimated blood loss was minimal. One non-bleeding cratered duodenal ulcer with no stigmata of bleeding was found in the duodenal bulb. The lesion was 6 mm in largest dimension. Biopsies were taken with a cold forceps for histology. Verification of patient identification for the specimen was done. Estimated blood loss was minimal. Impression: - Z-line irregular, 37 cm from the incisors. Biopsied. - Erythematous mucosa in the gastric body. Biopsied. - One non-bleeding duodenal ulcer with no stigmata of bleeding. Biopsied. - [Number of Biopsies] biopsies were obtained [Site]. Recommendation: - Discharge patient to home. - Resume previous diet. - Continue present medications. - Await pathology results. - Repeat upper endoscopy in 3 months for surveillance. Procedure Code(s): --- Professional --- 77681, Esophagogastroduodenoscopy, flexible, transoral; with biopsy, single or multiple CPT copyright 2017 [employer]. All rights reserved. The codes documented in this report are preliminary and upon rehab specialist review may be revised to meet current compliance requirements. Edwin Thorpe DO 10/18/2022 1:19:45 PM This report has been signed electronically. Number of Addenda: 0 Note Initiated On: 10/18/2022 12:29 PM
[2022-10-18 13:25] VITALS: BP 107/75; BP 116/66; PULSE 86; RESP 18; O2SAT 100
--- NOTE | 2022-10-18 13:25 | OP.COLON_ITS ---
Patient Name: Mallika Shukla Procedure Date: 10/18/2022 12:49 PM Date of : 1965 Age: 57 Procedure: Colonoscopy Indications: Screening for colorectal malignant neoplasm Providers: Edwin Thorpe DO Medicines: Monitored Anesthesia Care Patient Profile: This is a 57 year old female. Refer to note in patient chart for documentation of history and physical. Patient has symptoms of acute epigastric abdominal pain. Last Colonoscopy: none. The patient's first colonoscopy is today. Complications: No immediate complications. Procedure: Pre-Anesthesia Assessment: - Prior to the procedure, a History and Physical was performed, and patient medications and allergies were reviewed. The risks and benefits of the procedure and the sedation options and risks were discussed with the patient. All questions were answered and informed consent was obtained. Patient identification and proposed procedure were verified by the physician. Mental Status Examination: alert and oriented. Airway Examination: normal oropharyngeal airway and neck mobility. Respiratory Examination: clear to auscultation. CV Examination: normal. Prophylactic Antibiotics: The patient does not require prophylactic antibiotics. Prior Anticoagulants: The patient has taken no previous anticoagulant or antiplatelet agents. ASA Grade Assessment: II - A patient with mild systemic disease. After reviewing the risks and benefits, the patient was deemed in satisfactory condition to undergo the procedure. The anesthesia plan was to use moderate sedation / analgesia (conscious sedation). Immediately prior to administration of medications, the patient was re-assessed for adequacy to receive sedatives. The heart rate, respiratory rate, oxygen saturations, blood pressure, adequacy of pulmonary ventilation, and response to care were monitored throughout the procedure. The physical status of the patient was re-assessed after the procedure. After I obtained informed consent, the scope was passed under direct vision. Throughout the procedure, the patient's blood pressure, pulse, and oxygen saturations were monitored continuously. The Colonoscope was introduced through the anus and advanced to the terminal ileum. The colonoscopy was performed without difficulty. The patient tolerated the procedure well. The quality of the bowel preparation was fair. Scope In: 12:51:21 PM Scope Withdrawal Time 0 hours 15 minutes 44 seconds Scope Out: 1:13:00 PM Total Procedure Duration Time 0 hours 21 minutes 39 seconds Findings: Hemorrhoids were found on perianal exam. Non-bleeding internal hemorrhoids were found during retroflexion. The hemorrhoids were Grade I (internal hemorrhoids that do not prolapse). A few small-mouthed diverticula were found in the recto-sigmoid colon, sigmoid colon and descending colon. Semi-liquid stool was found in the sigmoid colon, in the transverse colon, in the ascending colon and in the cecum. Lavage of the area was performed, resulting in incomplete clearance with fair visualization. A 5 mm polyp was found in the cecum. The polyp was sessile. The polyp was removed with a cold snare. Resection and retrieval were complete. Verification of patient identification for the specimen was done. Estimated blood loss was minimal. A single small localized angiodysplastic lesion with bleeding was found in the cecum. Coagulation for hemostasis using heater probe was successful. Estimated blood loss was minimal. A localized area of the terminal ileum was congested. Biopsies were taken with a cold forceps for histology. Verification of patient identification for the specimen was done. Estimated blood loss was minimal. Impression: - Preparation of the colon was fair. - Hemorrhoids found on perianal exam. - Non-bleeding internal hemorrhoids. - Diverticulosis in the recto-sigmoid colon, in the sigmoid colon and in the descending colon. - Stool in the sigmoid colon, in the transverse colon, in the ascending colon and in the cecum. - One 5 mm polyp in the cecum, removed with a cold snare. Resected and retrieved. Recommendation: - Repeat colonoscopy in 5 years for surveillance. - Continue present medications. Procedure Code(s): --- Professional --- 37639, 59, Colonoscopy, flexible; with control of bleeding, any method 05053, Colonoscopy, flexible; with removal of tumor(s), polyp(s), or other lesion(s) by snare technique 12981, 59, Colonoscopy, flexible; with biopsy, single or multiple CPT copyright 2017 [employer]. All rights reserved. The codes documented in this report are preliminary and upon human resource assistant review may be revised to meet current compliance requirements. Edwin Thorpe DO 10/18/2022 1:25:14 PM This report has been signed electronically. Number of Addenda: 0 Note Initiated On: 10/18/2022 12:49 PM
--- NOTE | 2022-10-18 13:25 | OP.CCLET_ITS ---
10/18/2022 Daisy Escobar Re : Colonoscopy procedure for Mallika Shukla Dear Shawn This procedure was performed on Tuesday, October 18, 2022. My impressions and recommendations are as follows: Impressions : - Preparation of the colon was fair. - Hemorrhoids found on perianal exam. - Non-bleeding internal hemorrhoids. - Diverticulosis in the recto-sigmoid colon, in the sigmoid colon and in the descending colon. - Stool in the sigmoid colon, in the transverse colon, in the ascending colon and in the cecum. - One 5 mm polyp in the cecum, removed with a cold snare. Resected and retrieved. Recommendations : - Repeat colonoscopy in 5 years for surveillance. - Continue present medications. My findings are described in the full procedure note, which is enclosed. If I can be of further assistance, please feel free to contact me at . Sincerely, Edwin Thorpe, 10/18/2022 1:25:14 PM This report has been signed electronically.
[2022-10-18 13:30] VITALS: BP 114/73; BP 116/66; PULSE 77; RESP 18; TEMP 36.9; O2SAT 99
[2022-10-18 13:45] VITALS: BP 116/66
== END 2022-10-18 13:48 | disposition home or self-care (01) ==
LOC: EN 11:21 → AC 11:22
PROVIDERS: PCP Internal Medicine; Referring Provider Internal Medicine; Visit Provider Internal Medicine Gastroenterology
PROC: 0DJD8ZZ Inspection of Lower Intestinal Tract, Via Natural or Artificial Opening Endoscopic (ICD-10-PCS; CPT 45378; principal; 2022-10-18 12:25)
DX: Z12.11 Encounter for screening for malignant neoplasm of colon (principal); K55.21 Angiodysplasia of colon with hemorrhage; D12.0 Benign neoplasm of cecum; K26.9 Duodenal ulcer, unspecified as acute or chronic, without hemorrhage or perforation; K29.50 Unspecified chronic gastritis without bleeding; K57.30 Diverticulosis of large intestine without perforation or abscess without bleeding; K64.0 First degree hemorrhoids; D50.9 Iron deficiency anemia, unspecified; M54.9 Dorsalgia, unspecified; G89.29 Other chronic pain; Z79.899 Other long term (current) drug therapy; Z87.891 Personal history of nicotine dependence
CPT/HCPCS: 45385; 45382; 45380; 43239; 88305; 88313; 88342; J7120; J2405

== ENCOUNTER → 2022-10-19 | Outpatient (CLI) | payer MEDICARE, SELFPAY ==
--- NOTE | 2022-10-19 09:00 | KNEE_PTH ---
PATIENT: QUINTIN DAVID [facility] U#:[id number] AGE/SX: 57/F ROOM: RE10/19/[address]: Dr. Nikita Stanley DO : 1965 BED: DIS: 10/19/2022 SPEC #: [id number] RECD: 10/20/22 15:06 STATUS: ISABELLA REYuliana #: [id number] SPENCER: 10/19/22 09:[address]: Nikita Stanley DEPT: SURGICAL PATHOLOGY RECD BY: Rashmi Gibson ENTERED: 10/20/22 11:48 SP TYPE: TOTAL KNEE OTHR DR: Dr. Daisy Escobar, [facility] Tissues: Knee, NOS Procedures: Decalcification bone/plaque Surgery Specimen Level IV HEADER OPERATION: Robotic assisted left total knee PRE-OP DIAGNOSIS: Unilateral primary osteoarthritis left knee TISSUE SUBMITTED: Left knee bone and tissue MICROSCOPIC DIAGNOSIS Bone and tissue, left knee, total knee replacement/resection: Pieces of bone with degenerative osteoarthritic changes. Fibroadipose tissue, fibroconnective tissue and reactive synovial tissue. YISEL:carey 10/26/2022 MICROSCOPIC DESCRIPTION Slides are reviewed. GROSS DESCRIPTION Received is one container designated bone and tissue left knee. The specimen consists of multiple fragments of garrett-yellow bone measuring in aggregate 12 x 10 x 4 cm. Also in the specimen container are multiple fragments of yellow-white soft tissue measuring in aggregate 9 x 8 x 3 cm. A number of bony fragments contain articular surfaces consistent with tibial plateau and femoral condyle and displaying prominent osteophyte formation, eburnation, and bone erosion. Clearing Distribution Clerk sections are submitted in two cassettes as follows: 1 - soft tissue, 2 - bone after decalcification. / YISEL:carey 10/20/2022 TC:5 [facility]: [id number], [id number]
== END | disposition home or self-care (01) ==
LOC: LABSPEC 15:32
PROVIDERS: PCP Internal Medicine; Visit Provider Orthopaedic Surgery
DX: M17.12 Unilateral primary osteoarthritis, left knee (principal)
CPT/HCPCS: 88305; 88311

== ENCOUNTER → 2022-11-17 | Outpatient (CLI) | payer MEDICARE, SELFPAY ==
--- NOTE | 2022-11-17 14:15 | BI_ITS ---
MAMMOGRAPHY - BILATERAL SCREENING REASON FOR EXAM: Female, 57 years old. Routine annual screening examination. PERTINENT HISTORY: Non-contributory. TECHNIQUE: Digital bilateral breast yuridia (3D mammographic acquisition) in the CC and MLO projections. 2-D mediolateral oblique (MLO) and craniocaudad (CC) views of both breasts were obtained. CAD: Full Field Digital Mammography with Computer Added Detection was performed. COMPARISON: Comparison is made with prior study 12/24/2020 and 09/20/2013. FINDINGS: Breast Composition: The breasts are extremely dense, which lowers the sensitivity of mammography. There are no dominant masses or suspicious calcifications. No other significant abnormalities are identified. There has been no significant change since the prior study. BI/SCRN MAMM (CAD)W/YURIDIA BILAT IMPRESSION: Stable bilateral screening mammogram. Yearly follow-up mammogram recommended. (A) ASSESSMENT CATEGORY: BIRADS Category 1: Negative. A letter regarding these results will be sent to the patient by the facility within 30 days. Approximately 10% of breast cancers are not detected by mammography. A normal mammogram should not delay biopsy of a clinically suspicious abnormality. [id number] Electronically Signed: Tad Benjamin MD at 17:07 EST ,
== END | disposition home or self-care (01) ==
LOC: OPBI 14:14
PROVIDERS: PCP Internal Medicine; Referring Provider Internal Medicine; Visit Provider Internal Medicine
DX: Z12.31 Encounter for screening mammogram for malignant neoplasm of breast (principal)
CPT/HCPCS: 77063; 77067

== ENCOUNTER → 2023-01-26 | Outpatient (CLI) | payer MEDICARE, SELFPAY ==
--- NOTE | 2023-01-26 08:54 | BD_ITS ---
STUDY: DUAL ENERGY X-RAY ABSORPTIOMETRY / DXA REASON FOR EXAM: Female, 57 years old. Z780 -- postmenopausal TECHNIQUE: Bone Mineral Density (BMD) measurements of left forearm and bilateral hips were obtained. COMPARISON: Comparison is made with prior study of November 17, 2020. FINDINGS: Left Femur Total: g/cm2 (0.630) / T-score (-2.6) / Z-score (-1.7) Left Femoral Neck: g/cm2 (0.543) / T-score (-2.8) / Z-score (-1.5) Right Femur Total: g/cm2 (0.659) / T-score (-2.3) / Z-score (-1.4) Right Femoral Neck: g/cm2 (0.512) / T-score (-3.0) / Z-score (-1.8) Left Forearm: g/cm2 (0.543) / T-score (-0.7) / Z-score (0.5) The T-Scores on the most recent prior examination were: Left Femur Total: which represents a worsening of 3.4%. Right Femur Total: which represents an improvement of 5.7%. BD/Dexa Bone Density Study IMPRESSION: The patient is considered osteoporotic as outlined below according to World [employer] Organization (WHO) criteria with a high fracture risk. There has been worsening of bone density since the previous examination. Reference Information: The T-score is the number of standard deviations above or below the standard which is normal for young adults at their peak bone mineral density. The World Health Organization (WHO) interprets the T-scores as follows: Above -1 Normal bone density Between -1 and -2.5 Osteopenia Equal to / or below -2.5 Osteoporosis As a practical clinical guideline, osteopenia may be graded as follows: Mild -1 through -1.5 Moderate -1.6 through -2.0 Severe -2.1 through -2.4 The Z-score is the number of standard deviations above or below age-matched controls. A Z-score of less than -1.5 would be considered abnormal. References: 1. NIH Osteoporosis and Related Bone Diseases www osteo.org 2. International Society for Clinical Densitometry www iscd.org 3. National Osteoporosis Foundation www nof.org Electronically Signed: Tad Benjamin MD at 9:24 EDT ,
== END | disposition home or self-care (01) ==
LOC: OPBD 08:51
PROVIDERS: PCP Internal Medicine; Referring Provider Internal Medicine; Visit Provider Internal Medicine
DX: Z78.0 Asymptomatic menopausal state (principal)
CPT/HCPCS: 77080

== ENCOUNTER 2023-02-06 05:59 | Day surgery (SDC) | payer MEDICARE, SELFPAY ==
[2023-02-06 06:23] VITALS: BP 99/57; PULSE 77; RESP 18; TEMP 36.4; O2SAT 100; BMI 23.3
[2023-02-06] MEDS: Lactated Ringers 1,000 ML 15 ML IV (06:32)
--- NOTE | 2023-02-06 07:00 | EGD_PTH ---
PATIENT: QUINTIN DAVID LOC: EN U#:[id number] AGE/SX: 57/F ROOM: RE02/06/[address]: Dr. Edwin Thorpe DO : 1965 BED: DIS: 02/06/2023 SPEC #: [id number] RECD: 02/06/23 10:00 STATUS: ISABELLA DUC #: [id number] SPENCER: 02/06/23 07:[address]: Edwin Thorpe DEPT: SURGICAL PATHOLOGY RECD BY: Rashmi Gibson ENTERED: 02/06/23 11:20 SP TYPE: EGD BIOPSY OT DR: Dr. Daisy Escobar DO Tissues: Esophagus, NOS Procedures: Surgery Specimen Level IV HEADER OPERATION: EGD ([facility]), biopsy PRE-OP DIAGNOSIS: Duodenal ulcer, gastritis, tubular adenoma of colon TISSUE SUBMITTED: Distal esophagus biopsy MICROSCOPIC DIAGNOSIS Distal esophagus, biopsy: Gastroesophageal junctional mucosa with mild chronic inflammation. No evidence of goblet cell metaplasia. See comment. AM:carey 02/07/2023 COMMENT Alcian blue/PAS stain with matched control supports the above diagnosis. MICROSCOPIC DESCRIPTION Slides are reviewed. GROSS DESCRIPTION Received in fixative is one container labeled with the patient's name and designated distal esophagus biopsy. The specimen consists of two irregular fragments of light garrett soft tissue that in aggregate measure 0.8 x 0.4 x 0.1 cm. The specimen is totally submitted in one cassette. / SJ:carey 02/06/2023 TC:3 CPT: 46815, 36618
--- NOTE | 2023-02-06 07:00 | PCM.HP.BLA ---
History and Physical Date of Admission: 02/06/23 57 F who presents to the office today for discussion of EGD and colonoscopy results. She has recurrent episodes of vomiting and diarrhea that she relates to steroid injections for chronic back pain. EGD revealed gastritis, duodenal ulcer. Colonoscopy revealed nonbleeding hemorrhoids, diverticulosis, one tubular adenoma in the cecum. 10/18/22 EGD and Colonoscopy Impression: ? - Z-line irregular, 37 cm from the incisors. ? Biopsied. ? - Erythematous mucosa in the gastric body. ? Biopsied. ? - One non-bleeding duodenal ulcer with no ? stigmata of bleeding. 6 mm. Biopsied. Impression: ? - Preparation of the colon was fair. ? - Hemorrhoids found on perianal exam. ? - Non-bleeding internal hemorrhoids. ? - Diverticulosis in the recto-sigmoid colon, in ? the sigmoid colon and in the descending colon. ? - Stool in the sigmoid colon, in the transverse ? colon, in the ascending colon and in the cecum. ? - One 5 mm polyp in the cecum, removed with a ? cold snare. Resected and retrieved. One small angiodysplastic lesion with bleeding in the cecum, treated with heater probe MICROSCOPIC DIAGNOSIS A.? Duodenum, biopsy: ?No pathologic change. B.? Gastric body, biopsy: ?Mild chronic gastritis. ?See comment. Negative H pylori C.? Distal esophagus, biopsy: ?Fragments of gastric mucosa with chronic inflammation. ?No evidence of goblet cell metaplasia. ?See comment. D.? Terminal ileum, biopsy: ?No pathologic change. E.? Cecal polyp, biopsy: ?Fragments of tubular adenoma ROS Const Constitutional: No fatigue ENT ENT: No difficulty swallowing Gastro GI: No abdominal pain, belching, bloating, change in bowel habits, change in stool character, coffee ground emesis, constipation, cramping, diarrhea, heartburn, difficulty swallowing, feeling full early, excessive flatus, incontinent of stools, Vomiting blood/hematemesis, Blood in stool, loose stools, Black,tarry stools, nausea/dyspepsia, pain with swallowing, vomiting or other Musc Musculoskeletal: Positive for abnormal gait, joint pain, back pain, joint swelling, stiffness, Arthritis and sciatica Skin Skin: No yellowing of the eye or itchy eyes Neuro Neurology: Positive for abnormal gait Psych Psychiatric: Positive for anxiety and Positive for depression Endo Endocrine: No fatigue Aller/Imm Allergy/Immunologic: No itchy eyes [place]/Lymp Hematologic/Lymphatic: No easy bleeding or easy bruising Exam Const General: cooperative and comfortable Orientation: alert, awake and oriented x3 Other: using a walker due to recent knee replacement Quality Reporting Tobacco Screening ([facility]) Smoking Status: Former smoker Assessment and Plan Assessment and Plan (1) Duodenal ulcer: ?Status:?Acute ?Plan: We reviewed EGD and colonoscopy findings. Dr Escobar has already started pantoprazole [address] Thorpe recommends repeat EGD in 3 mos to ensure healing. (2) Gastritis: ?Status:?Acute ?Plan: as above (3) Tubular adenoma of colon: ?Status:?Acute ?Plan: Next colonoscopy 5 yrs I have examined the patient and the H&P has been reviewed. There are no clinical changes since date of exam.
--- NOTE | 2023-02-06 07:18 | OP.EGD_ITS ---
Patient Name: Mallika Shukla Procedure Date: 02/06/2023 7:01 AM Date of : 1965 Age: 57 Procedure: Upper GI endoscopy Indications: Peptic ulcer Providers: Edwin Thorpe DO Referring MD: Daisy Escobar Medicines: Monitored Anesthesia Care Patient Profile: This is a 57 year old female. Refer to note in patient chart for documentation of history and physical. Patient has symptoms of chronic global abdominal pain. She is status post EGD for ulcer treatment within the past three months. Complications: No immediate complications. Procedure: Pre-Anesthesia Assessment: - Prior to the procedure, a History and Physical was performed, and patient medications and allergies were reviewed. The risks and benefits of the procedure and the sedation options and risks were discussed with the patient. All questions were answered and informed consent was obtained. Patient identification and proposed procedure were verified by the physician in the pre-procedure area. Mental Status Examination: alert and oriented. Airway Examination: normal oropharyngeal airway and neck mobility. Respiratory Examination: clear to auscultation. CV Examination: normal. Prophylactic Antibiotics: The patient does not require prophylactic antibiotics. Prior Anticoagulants: The patient has taken no previous anticoagulant or antiplatelet agents. ASA Grade Assessment: II - A patient with mild systemic disease. After reviewing the risks and benefits, the patient was deemed in satisfactory condition to undergo the procedure. The anesthesia plan was to use monitored anesthesia care (MAC). Immediately prior to administration of medications, the patient was re-assessed for adequacy to receive sedatives. The heart rate, respiratory rate, oxygen saturations, blood pressure, adequacy of pulmonary ventilation, and response to care were monitored throughout the procedure. The physical status of the patient was re-assessed after the procedure. After obtaining informed consent, the endoscope was passed under direct vision. Throughout the procedure, the patient's blood pressure, pulse, and oxygen saturations were monitored continuously. The gastroscope was introduced through the mouth, and advanced to the second part of duodenum. The upper GI endoscopy was accomplished without difficulty. The patient tolerated the procedure well. Scope In: 7:10:31 AM Scope Out: 7:13:10 AM Total Procedure Duration Time 0 hours 2 minutes 39 seconds Findings: The Z-line was irregular and was found 40 cm from the incisors. Biopsies were taken with a cold forceps for histology. Verification of patient identification for the specimen was done. Estimated blood loss was minimal. A small hiatal hernia was present. No other significant abnormalities were identified in a careful examination of the stomach. The second portion of the duodenum was normal. Impression: - Z-line irregular, 40 cm from the incisors. Biopsied. - Small hiatal hernia. - Normal second portion of the duodenum. Recommendation: - Discharge patient to home. - Resume previous diet. - Continue present medications. - Await pathology results. Procedure Code(s): --- Professional --- 51978, Esophagogastroduodenoscopy, flexible, transoral; with biopsy, single or multiple CPT copyright 2017 [place]. All rights reserved. The codes documented in this report are preliminary and upon insurance attorney review may be revised to meet current compliance requirements. Edwin Thorpe DO 02/06/2023 7:18:26 AM This report has been signed electronically. Number of Addenda: 0 Note Initiated On: 02/06/2023 7:01 AM
--- NOTE | 2023-02-06 07:19 | OP.CCLET_ITS ---
02/06/2023 Daisy Escobar Re : Upper GI endoscopy procedure for Mallika Shukla Dear Shawn This procedure was performed on Monday, February 06, 2023. My impressions and recommendations are as follows: Impressions : - Z-line irregular, 40 cm from the incisors. Biopsied. - Small hiatal hernia. - Normal second portion of the duodenum. Recommendations : - Discharge patient to home. - Resume previous diet. - Continue present medications. - Await pathology results. My findings are described in the full procedure note, which is enclosed. If I can be of further assistance, please feel free to contact me at . Sincerely, Edwin Thorpe, 02/06/2023 7:18:26 AM This report has been signed electronically.
[2023-02-06 07:20] VITALS: BP 99/57; BP 99/65; PULSE 85; RESP 20; TEMP 36.4; O2SAT 99
[2023-02-06 07:25] VITALS: BP 96/68; BP 99/57; PULSE 79; RESP 16; O2SAT 96
[2023-02-06 07:30] VITALS: BP 106/71; BP 99/57; PULSE 74; RESP 16; O2SAT 96
[2023-02-06 07:35] VITALS: BP 88/71; BP 99/57; PULSE 78; RESP 16; TEMP 36.6; O2SAT 99
[2023-02-06 07:41] VITALS: BP 99/57
== END 2023-02-06 07:53 | disposition home or self-care (01) ==
LOC: EN 06:00 → AC 06:02
PROVIDERS: PCP Internal Medicine; Referring Provider Internal Medicine; Visit Provider Internal Medicine Gastroenterology
PROC: 0DJ08ZZ Inspection of Upper Intestinal Tract, Via Natural or Artificial Opening Endoscopic (ICD-10-PCS; CPT 43235; principal; 2023-02-06 06:55)
DX: K20.90 Esophagitis, unspecified without bleeding (principal); K44.9 Diaphragmatic hernia without obstruction or gangrene; K29.70 Gastritis, unspecified, without bleeding; Z96.651 Presence of right artificial knee joint; D12.6 Benign neoplasm of colon, unspecified; Z87.891 Personal history of nicotine dependence; K26.9 Duodenal ulcer, unspecified as acute or chronic, without hemorrhage or perforation; I10 Essential (primary) hypertension; Z79.899 Other long term (current) drug therapy
CPT/HCPCS: 43239; 88305; J7120; J2405

== ENCOUNTER → 2023-04-17 | Outpatient (CLI) | payer MEDICARE, SELFPAY ==
[2023-04-17 13:28] LABS: Amphetamine Urine VISTA POSITIVE (<1000 ng/mL); Barbiturate Urine VISTA NEGATIVE (< 200 ng/mL); Benzodiazepine Urine VISTA NEGATIVE (< 200 ng/mL); Cocaine Urine VISTA NEGATIVE (< 300 ng/mL); Ecstacy Urine VISTA NEGATIVE (< 500 ng/mL); Methadone Urine VISTA NEGATIVE (< 300 ng/mL); PCP Urine VISTA NEGATIVE (< 25 ng/mL); THC Urine VISTA NEGATIVE (< 50 ng/mL); Vista UDS pH Range 5
== END | disposition home or self-care (01) ==
PROVIDERS: PCP Internal Medicine; Referring Provider Anesthesiology Pain Medicine; Visit Provider Anesthesiology Pain Medicine
DX: F11.20 Opioid dependence, uncomplicated (principal)
CPT/HCPCS: 80307

== ENCOUNTER → 2023-09-14 | Outpatient (CLI) | payer MEDICARE, SELFPAY ==
--- NOTE | 2023-09-14 14:48 | CT_ITS ---
STUDY: CT ABDOMEN AND PELVIS WITH CONTRAST REASON FOR EXAM: Female, 58 years old. Rule out inguinal hernia RADIATION DOSAGE (If Supplied By Facility): CTDIvol = ( 10.77 ) mGy, DLP = ( 627.30 ) mGycm TECHNIQUE: Transaxial images were obtained from the dome of the diaphragm to the symphysis pubis with oral contrast. Oral and amp; IV Readi-CAT and amp; 100mL Isovue-300 was administered. Sagittal and coronal images were reconstructed. Individualized dose optimization techniques were used for this CT. COMPARISON: None. FINDINGS: The visualized lung bases are unremarkable. Mild coronary artery calcification. There is decreased attenuation of the liver consistent with steatosis. Normal gallbladder and extrahepatic biliary system. Normal spleen. Normal pancreas. Normal bilateral adrenal glands. Normal right kidney. Normal left kidney. Normal visualized stomach. Normal small intestine. A large amount of fecal material is seen throughout the colon. Sigmoid diverticulosis. The appendix is visualized and appears normal. There is scattered atherosclerotic calcification of the abdominal aorta, without a demonstrated aneurysm. Normal inferior vena cava. Normal retroperitoneum. Distended urinary bladder. There is a small left-sided inguinal hernia containing adipose tissue. There are diffuse degenerative changes of the visualized lumbar spine. Loss of the normal lumbar lordosis. Multilevel fusion with screw and plate fixation at the L2-L3 and L3-L4 levels. CT/Abdomen/Pelvis WITH Contrast IMPRESSION: Small left-sided inguinal hernia containing fat. Large amount of fecal material is seen throughout the colon. Fatty infiltration of the liver. Electronically Signed: Tad Benjamin MD at 15:34 EST ,
[2023-09-14 15:29] LABS: CREATININE FINGERSTICK < 1.0 mg/dL (0.55-1.02)
== END | disposition home or self-care (01) ==
LOC: CT 14:47
PROVIDERS: PCP Internal Medicine; Referring Provider Orthopaedic Surgery; Visit Provider Orthopaedic Surgery
DX: K40.90 Unilateral inguinal hernia, without obstruction or gangrene, not specified as recurrent (principal); I10 Essential (primary) hypertension
CPT/HCPCS: 74177; Q9967

== ENCOUNTER 2023-10-12 05:58 | Day surgery (SDC) | payer MEDICARE, SELFPAY ==
[2023-10-09 13:55] LABS: Anion Gap 5 (5-15); BUN 25 mg/dL (7-18); BUN/Creat Ratio 22.7 RATIO (10-20); Calcium,Total 9.9 mg/dL (8.5-10.1); Chloride 97 mmol/L (98-107); EST Glomerular Filtration Rate 54 mL/min (>60); Est Glom Filt Rate - Afr Amer 65 mL/min (>60); Glucose 109 mg/dL (74-106); Potassium 3.6 mmol/L (3.5-5.1); Sodium Level 136 mmol/L (136-145)
[2023-10-12] VITALS (10 sets, daily range): BP systolic 87–137; BP diastolic 53–82; PULSE 15–83; RESP 16; TEMP 36.2–37.2; O2SAT 91–99; BMI 26.4
--- NOTE | 2023-10-12 | IMM_PTH ---
PATHOLOGY RESULTS PATIENT: QUINTIN DAVID LOC: [facility] U#:[id number] AGE/SX: 58/F ROOM: RE10/12/[address]: Dr. Jeremiah Mason MD : 1965 BED: DIS: 10/12/2023 SPEC #: [id number] RECD: 10/13/23 11:59 STATUS: ISABELLA REQ #: [id number] SPENCER: 10/12/23 00:[address]: Jeremiah Mason DEPT: IMMUNOHISTOCHEMISTRY RECD BY: Yeni Lake ENTERED: 10/13/23 12:05 SP TYPE: IMMUNO OTHR DR: MD Dr. Daisy Sarabia DO Tissues: Inguinal lymph node, NOS Procedures: BCL-2 (add) BCL-6 (add) CD10 (add) CD138 (add) CD15 (add) CD20 (add) CD23 (add) CD3 (add) CD30 (add) CD43 (add) CD45 (add) CD5 (add) CD79A (add) CYCLIN (add) KAPPA (add) KI-67 (add) LAMBDA (add) P53 (add) MUM1 (add) C-MYC (add) Pankeratin (initial) PHYSICIAN & [place] [id number] SPECIMEN INFORMATION: Tissue Source: Left inguinal lymph node Clinical Info: Inguinal hernia left side Specimen Number: [id number] CPT code: 38478, 13971 x20 METHODOLOGY: Deparaffinized sections of prefer/formalin-fixed tissue or PAP/DQ stained slides are incubated with monoclonal/polyclonal antibodies/oligonucleotide probes. Localization is made via biotin free immunoperoxidase method. Appropriate controls are performed and reacted as expected. Results on target cell population are indicated in the following table: RESULTS: ANTIBODY / CLONE RESULT AE1-3 (AE1/AE3/PCK26) negative CD3 (PS1) positive CD5 (SP10) positive CD10 (56C6) negative CD15 (MMA) negative CD20 (L26) negative CD23 (1B12) negative CD30 (Rene-H2) negative CD43 (L60) positive CD45 (RP2/18) positive CD79a (11E3) positive CD138 (B-A38) negative BCL-2 (bcl-2/100/D5) positive BCL-6 ([id number]/A8) negative Cyclin D1/BCL-1 (SP4) negative MUM1 (MRQ-43) negative C-MYC (Y69) negative Lambda (polyclonal) negative Ferguson (polyclonal) negative P53 (DO-7) negative, null pattern Ki-67 (30-9) positive, low These tests were developed and their performance characteristics determined by [facility]. They may not have been cleared or approved by the U.S. Food and Drug Administration. The FDA has determined that such clearance or approval is not necessary. The above immunohistochemical/dualISH markers are ordered and reviewed by the Pathologist. INTERPRETATION: Left inguinal lymph node, biopsy: No evidence of lymphoproliferative disorder. AM:carey 10/16/2023
[2023-10-12] MEDS: Lactated Ringers 1,000 ML 15 ML IV ×2 (06:40→09:42)
--- NOTE | 2023-10-12 06:57 | PCM.HP.BLA ---
History and Physical Date of Admission: 10/12/23 Intake Vital Signs 09/21/2309:22 10/04/2412:09 Height 5 ft 6.5 in Weight: 166 lb 4 oz BP 139/74 H Blood Pressure Location Rt brachial Position Sitting Respiration 18 Pulse 86 Pulse Source Monitor Temp 97.3 F L Temp Source Temporal Pulse Oximetry (%) 96 Oxygen Delivery Method room air Intake Visit Reasons: Hernia Chief Complaint: inguinal hernia Risk Advisor Required: No Is patient in pain?: No Allergies metaxalone [From Skelaxin] Allergy (Intermediate, Verified 10/04/23 13:10) palpitationspregabalin [From Lyrica] Allergy (Intermediate, Verified 10/04/23 13:10) Swelling in handstopiramate [From Topamax] Allergy (Intermediate, Verified 10/04/23 13:10) UNK Medications indapamide 2.5 mg tablet 2.5 mg PO DAILY diuretic 10/16/19 [History Confirmed 10/04/23] lisinopril 20 mg tablet 20 mg PO DAILY bp 10/16/19 [History Confirmed 10/04/23] arginine (L-arginine) 500 mg capsule 500 mg PO BID 01/27/21 [History Confirmed 10/04/23] cholecalciferol (vitamin D3) 25 mcg (1,000 unit) capsule 25 mcg PO DAILY 01/27/21 [History Confirmed 10/04/23] rosuvastatin 5 mg tablet 10 mg PO DAILY 01/27/21 [History Confirmed 10/04/23] hydrocodone 7.5 mg-acetaminophen 325 mg tablet 1 tab PO TID PRN Pain 12/24/21 [History Confirmed 10/04/23] gabapentin 300 mg capsule mg PO 09/08/23 [History Confirmed 10/04/23] lisdexamfetamine 50 mg capsule mg PO 09/08/23 [History Confirmed 10/04/23] PFSH Medical History ADD (attention deficit disorder) Agoraphobia, unspecified Anxiety Arthritis Back pain Dehydration Depression Diarrhea Dysthymic disorder Elevated lipids Elevated liver enzymes Former smoker Hepatitis C High cholesterol Hypertension Hypertensive heart disease without heart failure Impaired fasting glucose Injury of back Leg cramps Nausea and vomiting Osteoporosis Restless legs Sports hernia Tubular adenoma of colon Surgical History H/O section History of knee replacement procedure of right knee History of lumbar surgery History of total knee replacement Hx of Achilles tendon repair Hx of arthroscopic knee surgery Hx of eye surgery Hx of foot surgery Hx of hysterectomy Hx of shoulder surgery Hx of tubal ligation Family History Mother Rheumatoid arthritisFather Hypertension High cholesterolSister Rheumatoid arthritis Hypertension High cholesterol Social History Smoking Status: Former smoker alcohol intake: current alcohol intake frequency: a few times a month HPI HPI HPI: Patient is a 58-year-old female here with left groin pain. She says has been going on for few weeks but it has been getting worse. She says it is worse in the morning and gradually lessens throughout the day. She says it hurts to bend over or reach down to tie her shoe. ROS General General: Yes weight change Additional Details: gain Musc Musculoskeletal: Yes back problems and arthritis Cardio Cardiovascular: Yes high blood pressure Gastro Gastrointestinal: Yes abdominal pain Exam Const General: cooperative Orientation: alert and oriented x3 HENMT Head: normal to inspection Neck Neck: normal visual inspection and full ROM Chest Chest palpation & inspection: normal inspection of the chest Resp Effort & Inspection: normal respiratory effort Auscultation: clear to auscultation bilaterally Cardio Rate: regular rate Rhythm: regular rhythm GI Inspection: non-distended Palpation: soft, hernia femoral on the left and nontender Skin General: no rashes or lesions noted Neuro General: patient alert and patient oriented x3 Extrem General: full ROM Psych Appearance: grossly normal Mental Status: mental status grossly normal Assessment and Plan Assessment and Plan (1) Hernia: (2) Inguinal hernia: Status: Acute Qualifiers: Laterality: unilateral Obstruction and gangrene presence: without obstruction or gangrene Recurrence: non-recurrent Qualified Code(s): K40.90 - Unilateral inguinal hernia, without obstruction or gangrene, not specified as recurrent Plan: Patient is a 58-year-old female here with left groin pain. She had a CT scan which showed left inguinal hernia. I was able to palpate the tiny area of fat and reduce it and this immediately took care of her symptoms. After she was reduced she was able to move her leg without any pain and across her legs. This is likely the cause of her pain. She likely has a left femoral hernia containing fat. I discussed robotic assisted laparoscopic repair with mesh. I also discussed possibly repairing the contralateral side if there is a hernia on the other side. I discussed the procedure in detail as well as the postoperative care and the risks. I discussed risks of bleeding, infection, injury other organs such as the bowel or bladder or blood supply to the leg. Patient understands the risks and is willing to proceed. Jeremiah Mason MD Pager: [facility] [address] [place] [address], [address] [place] [address] Office: I have examined the patient and the H&P has been reviewed. There are no clinical changes since date of exam.
[2023-10-12] MEDS: Cefazolin 2 GM in 0.9% Normal Saline (100mL Bag) 100 ML IV (07:19)
--- NOTE | 2023-10-12 08:19 | LYMN_PTH ---
PATHOLOGY RESULTS PATIENT: QUINTIN DAVID LOC: [facility] U#:[id number] AGE/SX: 58/F ROOM: RE10/12/[address]: Dr. Jeremiah Mason MD : 1965 BED: DIS: 10/12/2023 SPEC #: [id number] RECD: 10/12/23 08:24 STATUS: ISABELLA REYuliana #: [id number] SPENCER: 10/12/23 08:[address]: Jeremiah Mason DEPT: SURGICAL PATHOLOGY RECD BY: Rashmi Gibson ENTERED: 10/12/23 09:32 SP TYPE: LYMPH NODE OTHR DR: MD Dr. Daisy Sarabia, Tissues: LYMPH NODE BIOPSY Procedures: Special Stain Group II Surgery Specimen Level IV Imprint (control) HEADER OPERATION: Lap robotic inguinal hernia repair with mesh PRE-OP DIAGNOSIS: Inguinal hernia, left side TISSUE SUBMITTED: Left inguinal lymph node MICROSCOPIC DIAGNOSIS Left inguinal lymph node, biopsy: Polytypic lymphoid tissue. See comment. Note: There is no evidence of lymphoproliferative disorder. AM:carey 10/16/2023 COMMENT The specimen is evaluated at the time of touch imprint by Dr. Pearl. Immediate Evaluation = Numerous lymphocytes are noted. Immunohistochemistry ([id number]) supports the above diagnosis. FLOW analysis does not reveal evidence of B-cell or T-cell lymphoma. Complete report in EMR. MICROSCOPIC DESCRIPTION Slides are reviewed. GROSS DESCRIPTION Received fresh for lymphoma protocol labeled with the patient's name is a specimen designated left inguinal lymph node. The specimen consists of a piece of garrett-pink soft tissue measuring 1.5 x 0.5 x 0.2 cm. The specimen is bisected. Two touch imprints are prepared. A section is submitted for flow cytometry study. The entire specimen is submitted in one cassette. / SJ:carey 10/12/2023 TC:5 CPT: 21149, 26133
[2023-10-12] MEDS: Bupivacaine Mpf 0.5% 30 ML VIAL (08:50)
--- NOTE | 2023-10-12 09:11 | PCM.OPRPT ---
Report of Operation Date of Procedure: 10/12/23 Pre-Operative Diagnosis: Left inguinal hernia Post-Operative Diagnosis: Left inguinal hernia Surgery/Procedure Performed:: Robotic assisted left inguinal hernia repair with mesh Left inguinal lymph node biopsy Type of Anesthesia: General/Regional Specimen's removed: Left inguinal lymph node Estimated Blood Loss (mL): 10 Description of Procedure: Patient was brought back to the operating room and general anesthesia was induced. The abdomen was prepped and draped in usual sterile fashion. A midline incision was made superior to the umbilicus and the fascia was elevated and a Veress needle was placed into the abdomen. The the drop test was performed. The abdomen was insufflated to 15 mmHg and the Veress needle was removed. Port was placed into the abdomen and then the camera placed into the abdomen. There were no injuries from entry. The patient was placed in Trendelenburg position. Patient had extensive adhesions to her midline inferior to the incision. Under direct visualization a left lateral 8 mm port and a right lateral 8 mm port were placed. The adhesions near the camera port was sharply taken down looking through the right lateral port. Once there is enough room to docked the robot the robot was docked. Using electrocautery scissors dissection was carried inferiorly. It appeared that her posterior rectus sheath was open and not reapproximated and omentum had adhered to the muscle. This was all taken down. Next the peritoneum was dissected further down to the left lower quadrant. Dissection was carried inferiorly. The round ligament was identified and clipped and divided. The patient did have an indirect hernia with lipoma that was reduced. The patient also had an enlarged lymph node in the femoral area that appeared firm and friable. This lymph node was dissected free and his stalk was clipped and it was removed and sent fresh for pathology. There did not appear to be any hernia in the femoral region. Next a large piece of ProGrip mesh was placed over the left inguinal region and unfolded completely covering the femoral and both inguinal spaces. Next as best as possible the peritoneum was reapproximated using a running 3 OV lock suture. Several interrupted 2-0 Vicryl sutures were used to try to cover the mesh completely. There is a lack of peritoneum due to the prior surgery and adhesions. I was able to completely cover the mesh with peritoneum by the end of the case. The abdomen was allowed to desufflate and the robot was undocked. The ports were removed and the incisions were injected with local anesthetic. The incisions were closed with interrupted 4-0 Monocryl sutures and Steri-Strips. Bandages were placed and patient was awoken and taken to PACU in stable condition. Patient tolerated the procedure well. Grafts/Implants Used: ProGrip mesh in the left groin Admit VTE Documentation VTE Mechan Device Prophylaxis: SCD's
--- NOTE | 2023-10-12 09:16 | DCINST_ITS ---
Discharge Instructions Procedure Hernia Diet Discharge Diet: Light diet - advance as tolerated Activity Discharge Activity: May Not Drive (for 2-3 days or while taking narcotic pain meds.) and May Shower (with the bandage in place 1-2 days after surgery.) Lifting Restrictions: 20 pounds for 4 weeks. Additional Activity Instructions:: Climbing stairs is fine, walking is encouraged. Sitting in bed may be uncomfortable. Sitting up using your lateral muscles (sitting up sideways) is usually more comfortable. Do not drive, work heavy equipment of sign legal documents for 24 hours. Pain medications may cause nausea, you should typically eat light foods as you take your pain medications. Pain medications may also cause constipation. If you have difficulty with this, discuss with your doctor. Dressing / Incision Call your doctor if your incision/area has: Continuous Slow Oozing, Sudden Increased Bleeding, Increased Pain/ Swelling, Increased Redness and Foul Smelling Discharge Call your doctor if you observe: Fever of 101 or Higher Suture Line Care: Avoid Pulling/Pushing and Avoid Pinching/Bending Remove Dressing in: 2 days (Remove clear bandages in 2 days, remove Steri-Strips in 7 to 10 days.) Follow Up Care Please Follow Up With: Jeremiah Mason MD When: Please call to schedule 2 week follow up appointment. [phone] Test Results: Test results from this visit will be discussed in further detail at your follow- up appointment, if applicable. Discharge Plan Admission Attending Provider: Jeremiah Mason Primary Care Provider: Daisy Escobar Consulting Providers: Bandar Metzger Instructions Additional Instructions / Restrictions: Alternate ibuprofen and Tylenol for pain, oxycodone for breakthrough Discharge Orders/Prescriptions Prescriptions: New oxycodone 5 mg tablet 5 - 10 mg PO Q6H PRN (Reason: pain) 5 Days Qty: 10 0RF No Action rosuvastatin 5 mg tablet 10 mg PO DAILY cholecalciferol (vitamin D3) 25 mcg (1,000 unit) capsule 25 mcg PO DAILY arginine (L-arginine) 500 mg capsule 500 mg PO BID hydrocodone-acetaminophen 7.5-325 mg tablet 1 tab PO TID PRN (Reason: Pain) gabapentin 300 mg capsule 300 mg PO TID Patient Comments: take 1 capsule by mouth three times a day lisdexamfetamine 50 mg capsule 50 mg PO DAILY Patient Comments: take 1 capsule by mouth every morning indapamide 2.5 MG tablet 2.5 mg PO DAILY lisinopril 20 MG tablet 20 mg PO DAILY Referrals / Follow Up: Fast,Daisy, [Primary Care Provider] - Disposition Disposition (needs filled in before D/C Order can be placed): Home, Self Care
[2023-10-12] MEDS: oxyCODONE 5 MG Tablet PO (10:04)
[2023-10-12] MEDS: Acetaminophen 325 MG Tablet 650 MG PO (10:04)
== END 2023-10-12 10:34 | disposition home or self-care (01) ==
LOC: SDC 05:58 → AC 06:19
PROVIDERS: Anesthesiology; PCP Internal Medicine; Referring Provider Surgery; Visit Provider Surgery
PROC: 0YQ64ZZ Repair Left Inguinal Region, Percutaneous Endoscopic Approach (ICD-10-PCS; CPT 49650; principal; 2023-10-12 07:10)
DX: K40.90 Unilateral inguinal hernia, without obstruction or gangrene, not specified as recurrent (principal); R59.0 Localized enlarged lymph nodes; I11.9 Hypertensive heart disease without heart failure; E78.00 Pure hypercholesterolemia, unspecified; Z87.891 Personal history of nicotine dependence; Z79.899 Other long term (current) drug therapy
CPT/HCPCS: 49650; 00840; 36415; 80048; 88305; 88313; 88341; 88342; J7120; J2405

== ENCOUNTER → 2023-12-21 | Outpatient (CLI) | payer MEDICARE, SELFPAY ==
--- NOTE | 2023-12-21 08:28 | BI_ITS ---
MAMMOGRAPHY - BILATERAL SCREENING REASON FOR EXAM: Female, 58 years old. Routine annual screening examination. PERTINENT HISTORY: Non-contributory. TECHNIQUE: Digital bilateral breast yuridia (3D mammographic acquisition) in the CC and MLO projections. 2-D mediolateral oblique (MLO) and craniocaudad (CC) views of both breasts were obtained. CAD: Full Field Digital Mammography with Computer Added Detection was performed. COMPARISON: Comparison is made with prior study dated November 17, 2022 and December 24, 2020. FINDINGS: Breast Composition: The breasts are heterogeneously dense, which may obscure small masses. There are no dominant masses or suspicious calcifications. Questionable focal nodular density in the central aspect of the right breast as seen on the mediolateral oblique view. The patient will be called for additional views including 90 degrees lateral view. No other significant abnormalities are identified. BI/SCRN MAMM (CAD)W/YURIDIA BILAT IMPRESSION: Questionable focal nodular density in the central aspect of the right breast as seen on the mediolateral oblique view. The patient will be recalled for additional views including a 90 degree lateral right mammogram. Recall Side: Right Breast ASSESSMENT CATEGORY: BIRADS Category 0: Incomplete. Need additional imaging evaluation. A letter regarding these results will be sent to the patient by the facility within 30 days. Approximately 10% of breast cancers are not detected by mammography. A normal mammogram should not delay biopsy of a clinically suspicious abnormality. [id number] Electronically Signed: Tad Benjamin MD at 11:05 EDT ,
== END | disposition home or self-care (01) ==
LOC: OPBI 08:28
PROVIDERS: PCP Internal Medicine; Referring Provider Internal Medicine; Visit Provider Internal Medicine
DX: Z12.31 Encounter for screening mammogram for malignant neoplasm of breast (principal)
CPT/HCPCS: 77063; 77067

== ENCOUNTER → 2023-12-22 | Outpatient (CLI) | payer MEDICARE, SELFPAY ==
--- NOTE | 2023-12-22 09:17 | BI_ITS ---
MAMMOGRAPHY - UNILATERAL DIAGNOSTIC: RIGHT BREAST REASON FOR EXAM: Female, 58 years old. Abnormal screening mammogram. PERTINENT HISTORY: Non-contributory. TECHNIQUE: Compression spot views and 90 degree view of the right breast were obtained. CAD: Full Field Digital Mammography with Computer Added Detection was performed. COMPARISON: Comparison is made with prior mammogram dated December 21, 2023. FINDINGS: Breast Composition: The breasts are heterogeneously dense, which may obscure small masses. No definite nodule is seen at this time. Further correlation with targeted ultrasound recommended. No other significant abnormalities are identified. BI/DIAG MAMM W/CAD, UNILAT IMPRESSION: No definite nodule is seen at this time. Further correlation with targeted ultrasound is recommended. ASSESSMENT CATEGORY: BIRADS Category 0: Incomplete. Need additional imaging evaluation. A letter regarding these results will be sent to the patient by the facility within 30 days. Approximately 10% of breast cancers are not detected by mammography. A normal mammogram should not delay biopsy of a clinically suspicious abnormality. Electronically Signed: Tad Benjamin MD at 12:10 EDT ,
--- NOTE | 2023-12-22 10:00 | US_ITS ---
STUDY: ULTRASOUND BREAST - RIGHT REASON FOR EXAM: Female, 58 years old. Abnormal screening mammogram. TECHNIQUE: Axial and longitudinal images of the RIGHT breast were performed with a high resolution ultrasound transducer. # OF IMAGES: 40 COMPARISON: Comparison is made with prior mammogram done earlier today and December 21, 2023. FINDINGS: RIGHT Breast: There is a 3 mm x 4 mm x 4 mm cystic nodule at the 6:00 position of the breast at 4 cm from the nipple. There is evidence of posterior acoustical enhancement. US/Breast Limited Unilateral IMPRESSION: 3 mm x 4 mm x 4 mm cystic nodule at the 2:00 position of the breast at 4 cm from the nipple. This corresponds to the mammographic findings. ASSESSMENT CATEGORY: BIRADS Category 2: Benign. A letter regarding these results will be sent to the patient by the facility within 30 days. Electronically Signed: Tad Benjamin MD at 12:13 EDT ,
== END | disposition home or self-care (01) ==
LOC: OPBI 09:15
PROVIDERS: PCP Internal Medicine; Referring Provider Internal Medicine; Visit Provider Internal Medicine
DX: R92.30 Dense breasts, unspecified (principal)
CPT/HCPCS: 76642; 77065

== ENCOUNTER → 2024-05-01 | Outpatient (CLI) | payer MEDICARE, SELFPAY ==
[2024-05-01 18:17] LABS: Amphetamine Urine VISTA POSITIVE (<1000 ng/mL); Barbiturate Urine VISTA NEGATIVE (< 200 ng/mL); Benzodiazepine Urine VISTA NEGATIVE (< 200 ng/mL); Cocaine Urine VISTA NEGATIVE (< 300 ng/mL); Ecstacy Urine VISTA NEGATIVE (< 500 ng/mL); Methadone Urine VISTA NEGATIVE (< 300 ng/mL); PCP Urine VISTA NEGATIVE (< 25 ng/mL); THC Urine VISTA NEGATIVE (< 50 ng/mL); Vista UDS pH Range 7
== END | disposition home or self-care (01) ==
LOC: LAB 16:51
PROVIDERS: PCP Internal Medicine; Referring Provider Anesthesiology Pain Medicine; Visit Provider Anesthesiology Pain Medicine
DX: F11.20 Opioid dependence, uncomplicated (principal)
CPT/HCPCS: 80307

== ENCOUNTER → 2024-08-05 | Outpatient (CLI) | payer MEDICARE, SELFPAY ==
--- NOTE | 2024-08-05 09:30 | MRI_ITS ---
STUDY: MRI RIGHT FOREFOOT WITHOUT CONTRAST REASON FOR EXAM: Female, 59 years old. RT FOOT, OSTEOARTHRITIS 1ST MTPJ, SESAMOIDITIS TECHNIQUE: Standardized fat and water weighted pulse sequences were obtained in all 3 orthogonal planes. COMPARISON: None. FINDINGS: There is mild degenerative arthrosis at the first MTP joint with mild marginal osteophyte formation. Normal bone marrow of the metatarsals, phalanges and visualized tarsals, without fracture, periostitis, erosions or reactive bone edema. Normal sesamoids without sesamoiditis, fracture or avascular necrosis. Intact joint spaces, without effusions. There are no extraarticular fluid collections. Normal visualized Chopart and Lisfranc joints and normal Lisfranc ligament. Normal intermetatarsal spaces without intermetatarsal (Garcia) neuroma or bursitis. Normal visualized distal posterior tibialis tendon. Normal visualized distal anterior tibialis tendon. Normal visualized distal peroneus longus and brevis tendons. Normal visualized extensor digitorum longus, extensor hallucis longus, flexor digitorum brevis and flexor hallucis longus tendons. Normal visualized plantar fascia without fasciitis, fibromatosis or tear. Normal intrinsic muscles of the foot, without soft tissue masses or evidence of denervation atrophy. Normal dorsal and plantar subcutis adipose space. MRI/Lower Ext/No Jt/w/o IMPRESSION: Mild degenerative arthrosis at the first MTP joint. Normal sesamoids. Electronically Signed: Bry Rader MD at 9:33 EST ,
== END | disposition home or self-care (01) ==
LOC: MRI 09:31
PROVIDERS: PCP Internal Medicine; Referring Provider Podiatrist; Visit Provider Podiatrist
DX: M19.071 Primary osteoarthritis, right ankle and foot (principal); M25.80 Other specified joint disorders, unspecified joint
CPT/HCPCS: 73718

== ENCOUNTER → 2024-11-19 | Outpatient (CLI) | payer MEDICARE, SELFPAY ==
--- NOTE | 2024-11-19 07:20 | US_ITS ---
PROCEDURE: ABDOMEN LIMITED REASON FOR EXAM: Vomiting. COMPARISON: None FINDINGS: Liver: Diffusely echogenic suggesting fatty infiltration. Gallbladder: Sludge is seen within the dependent portion of the gallbladder lumen. Common bile duct: Normal measuring 5 mm. Pancreas: Visualized portions are sonographically unremarkable. Visualized portions of the right kidney are unremarkable. No right upper quadrant ascites. US/Abdomen Limited IMPRESSION: Fatty infiltration of the liver. Sludge is seen within the gallbladder lumen. Reading Location: [place] [id number]
== END | disposition home or self-care (01) ==
LOC: US 07:16
PROVIDERS: PCP Internal Medicine; Referring Provider Internal Medicine; Visit Provider Internal Medicine
DX: R11.10 Vomiting, unspecified (principal)
CPT/HCPCS: 76705

== ENCOUNTER → 2025-02-19 | Outpatient (CLI) | payer MEDICARE, SELFPAY ==
[2025-02-19 12:56] LABS: International Normalized Ratio 0.9; Prothrombin Time (Protime)PT. 12.1 SECONDS (11.7-14.9)
[2025-02-19 14:26] LABS: Hepatitis B Surface Antibody REAC
[2025-02-20 11:34] LABS: Hepatitis B Surface Antigen Nonreactive (Nonreactive); Hepatitis C Antibody REAC (Nonreactive)
[2025-02-21 15:08] LABS: Hepatitis A AB, Total Negative (Negative); Hepatitis B Core Ab Total Positive (Negative); Immunoglobulin A 229 mg/dL (87-352); t-Transglutaminase IgA <2 U/mL (0-3)
== END | disposition home or self-care (01) ==
LOC: LAB 11:05
PROVIDERS: PCP Internal Medicine; Referring Provider Nurse Practitioner Acute Care; Visit Provider Nurse Practitioner Acute Care
DX: K76.0 Fatty (change of) liver, not elsewhere classified (principal); R19.7 Diarrhea, unspecified; R10.9 Unspecified abdominal pain
CPT/HCPCS: 36415; 82784; 83516; 84443; 85610; 86704; 86706; 86708; 86803; 87340

== ENCOUNTER → 2025-02-20 | Outpatient (CLI) | payer MEDICARE, SELFPAY | END | disposition home or self-care (01) | LOC: LABSPEC 15:24 | PROVIDERS: PCP Internal Medicine; Referring Provider Nurse Practitioner Acute Care; Visit Provider Nurse Practitioner Acute Care | DX: R19.7 Diarrhea, unspecified (principal) | CPT/HCPCS: 87493 ==

== ENCOUNTER → 2025-02-21 | Outpatient (CLI) | payer MEDICARE, SELFPAY | END | disposition home or self-care (01) | LOC: LAB 10:26 | PROVIDERS: PCP Internal Medicine; Referring Provider Nurse Practitioner Acute Care; Visit Provider Nurse Practitioner Acute Care | DX: K75.9 Inflammatory liver disease, unspecified (principal) | CPT/HCPCS: 36415; 87522 ==

== ENCOUNTER 2025-02-25 11:00 | Day surgery (SDC) | payer MEDICARE, SELFPAY ==
[2025-02-25] VITALS (8 sets, daily range): BP systolic 105–140; BP diastolic 53–104; PULSE 78–87; RESP 16; TEMP 36.1–37.1; O2SAT 100; BMI 22.0
[2025-02-25] MEDS: Lactated Ringers 1,000 ML 15 ML IV (11:33)
--- NOTE | 2025-02-25 12:00 | COLBX_PTH ---
PATIENT: QUINTIN DAVID LOC: [facility] U#:[id number] AGE/SX: 59/F ROOM: RE02/25/[address]: Dr. Edwin Thorpe DO : 1965 BED: DIS: 02/25/2025 SPEC #: [id number] RECD: 02/25/25 16:46 STATUS: ISABELLA REYuliana #: [id number] SPENCER: 02/25/25 12:[address]: Edwin Thorpe DEPT: SURGICAL PATHOLOGY RECD BY: Delvin Smith ENTERED: 02/26/25 08:58 SP TYPE: COLON BX OT DR: Dr. Daisy Escobar DO Tissues: A - Ileum, NOS B - COLON BIOPSY Procedures: Trichrome (control) Surgery Specimen Level IV HEADER OPERATION: Colonoscopy with biopsies PRE-OP DIAGNOSIS: Abdominal pain TISSUE SUBMITTED: A- Terminal ileum biopsy, B- Random colon biopsy MICROSCOPIC DIAGNOSIS A. Small bowel, terminal ileum, biopsy: * Fragments of small intestinal mucosa with no specific pathologic change. * Fragments of colonic mucosa with patchy mildly increased intraepithelial lymphocytes - see Comment. B. Colon, random, biopsy: * Fragments of colonic mucosa with increased intraepithelial lymphocytes - see Comment. COMMENT (A, B): Increased intraepithelial lymphocytes is suggestive of lymphocytic (microscopic) colitis. No significant thickening of the subepithelial collagen table is observed with Trichrome stain (A, B). The differential diagnosis includes medication injury/reaction and infection. Recommend correlation with clinical and endoscopic findings. MICROSCOPIC DESCRIPTION Slides are reviewed. All matched controls reacted appropriately. These tests were developed and their performance characteristics determined by [facility]. They may not have been cleared or approved by the U.S. Food and Drug Administration. The FDA has determined that such clearance or approval is not necessary.? The above immunohistochemical/dualISH?markers are ordered and reviewed by the Pathologist. GROSS DESCRIPTION A. Received in formalin in a container labeled with the patient's name, date of , and terminal ileum biopsy are multiple garrett-pink fragments of mucosal tissue measuring 1.0 x 0.6 x 0.3 cm in aggregate. Submitted in toto in A1. B. Received in formalin in a container labeled with the patient's name, date of , and random colon biopsy are multiple garrett-pink fragments of mucosal tissue measuring 1.0 x 0.7 x 0.2 cm in aggregate. Submitted in toto in B1. [facility] 02-26-2025 CPT:47000b5,27707y8
--- NOTE | 2025-02-25 12:00 | PCM.PRE.AN2 ---
ASA Classification* ASA Classification ASA Classification: 3 Assessment & Plan Anesthesia* Anesthesia Assessment Anesthesia Assessment: Discussed sedation and/or anesthesia options, risks, benefits, and alternatives with patient/parents/legal guardian/POA. Questions invited. The patient/parents/legal guardian/POA seems to understand and agrees to proceed with anesthesia plan. Reviewed the physical assessment, medical history, allergy history and patient home medications list prior to surgery/procedure/anesthetic and documented any changes. Performed airway and anesthesia risk assessments. Anesthesia Type Anesthesia Type: MAC History Source History Obtained from:: Patient and Chart Anesthesia Focused Assessment* Temperature: 98.8 F Pulse Rate: 80 Blood Pressure: 113/72 Respiratory Rate: 16 Pulse Ox: 100 Oxygen Delivery Method: Room Air Airway Assessment Mouth opens: >3 cm Mallampati Score: IV Teeth Condition: Caps/Crowns (Patient has a capped right lower molar. It is tight.) Neck Range of motion (ROM): Full ROM Focused Labs Anesthesia Preop lab: CBC WBC 7.8 K/mm3 (4.4-11.0) 10/13/22 12:24 10/13/22 RBC 4.64 M/mm3 (4.2-5.4) 10/13/22 12:24 10/13/22 Hgb 13.9 g/dL (12.0-15.0) 10/13/22 12:24 10/13/22 Hct 40.4 % (37-47) 10/13/22 12:24 10/13/22 Plt Count 287 K/mm3 (150-450) 10/13/22 12:24 10/13/22 CHEMISTRY Potassium 3.6 mmol/L (3.5-5.1) 10/09/23 13:10 10/09/23 Sodium 136 mmol/L (136-145) 10/09/23 13:10 10/09/23 BUN 25 mg/dL (7-18) H 10/09/23 13:10 10/09/23 Creatinine 1.10 mg/dL (0.55-1.02) H 10/09/23 13:10 10/09/23 Glucose 109 mg/dL (74-106) H 10/09/23 13:10 10/09/23 POC Glucose 76 mg/dL (70-110) 10/28/19 09:02 10/28/19 TSH 2.240 uIU/mL (0.300-4.200) 02/19/25 11:09 02/19/25 COAG PT 12.1 SECONDS (11.7-14.9) 02/19/25 11:09 02/19/25 Pre-Assessment Diagnosis/Proposed Procedure Planned Operative Procedure(s): CSCOPE Anesthesia History 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 When Was Last Pacemaker Check QUESTION #4 FULL TEXT: You/Your Family Experience fever (hyperthermia) with Anesthesia Last Oral Intake Last Oral intake: Last Oral Intake NPO since 10:00 02/25/25 11:24 Meds taken in AM with sips of No 02/25/25 11:24 water? 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 Female Yes 02/20/25 14:45 HX of Motion Sickness No 02/20/25 14:45 HX of N/V After Surgery No 02/20/25 14:45 Non-Smoker Yes 02/20/25 14:45 Duration of Surgery greater No 02/20/25 14:45 than 60 minutes Number of Risk Factors 2 02/20/25 14:45 PONV Score Moderate Risk 02/20/25 14:45 Height & Weight Height & Weight: Anesthesia: Height & Weight Height 5 ft 8 in 02/25/25 11:24 Weight: 65.7 kg 02/25/25 11:24 Body Mass Index (BMI) 22.0 02/25/25 11:24 Respiratory Assessment Respiratory Assessment - 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 Has anyone observed you stop No 02/20/25 14:45 breathing during sleep? STOP Results Negative 02/20/25 14:45 QUESTION #5 FULL TEXT : Do you snore loudly (louder than talking or can be heard through closed doors)? 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 Specify any problems Hx of Preganancy in last 3 No 02/20/25 14:45 Months Nurse Filling Out Transfusion DSCHRIBER 02/20/25 14:45 & Questions: Date: 02/20/25 02/20/25 14:45 Time: 14:46 02/20/25 14:45 Patient unable to answer at this time (ie. 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: /Reproductive Hx- concrete stone fabricating supervisor Hx Now No 02/20/25 14:45 Gestational Age (in weeks): EDC: Hx Hx Para Hx Section SAB No 02/20/25 14:45 Active Medications Active Medications: Current Medications Generic Name Dose Route Start Last Admin Trade Name Freq PRN Reason Stop Dose Admin Lactated Ringer's 1,000 mls @ 15 mls/hr 02/25/25 11:15 02/25/25 11:33 IV 15 mls/hr .Q48H MAYCOL Administration PFSH Medical History Hepatitis C ADHD (attention deficit hyperactivity disorder) Alcohol use Gastric reflux History of ulceration Sports hernia Inguinal hernia Tubular adenoma of colon Agoraphobia, unspecified Hypertensive heart disease without heart failure Arthritis High cholesterol Back pain Former smoker Elevated lipids Home Medications ?Medication ?Instructions ?Recorded ?Last Taken ?Type indapamide 2.5 mg tablet 2.5 mg PO DAILY diuretic 10/16/19 10/11/23 History lisinopril 20 mg tablet 20 mg PO DAILY bp 10/16/19 10/12/23 History arginine (L-arginine) 500 mg 500 mg PO BID 01/27/21 10/11/23 History capsule cholecalciferol (vitamin D3) 25 25 mcg PO DAILY 01/27/21 10/11/23 History mcg (1,000 unit) capsule rosuvastatin 5 mg tablet 10 mg PO DAILY 01/27/21 10/11/23 History hydrocodone-acetaminophen 5-325mg 1 tab PO TID PRN pain 02/20/25 Unknown History 5mg-325mg lisdexamfetamine 60 mg capsule 60 mg PO DAILY 02/20/25 Unknown History Allergy/AdvReac Type Severity Reaction Status Date / Time No Known Allergies Allergy Verified 02/25/25 11:23 Family History Mother Rheumatoid arthritis Father Hypertension High cholesterol Sister Rheumatoid arthritis Hypertension High cholesterol Surgical History Hx of total knee arthroplasty Hx of left inguinal hernia repair S/P inguinal hernia repair History of esophagogastroduodenoscopy (EGD) History of colonoscopy History of total knee replacement Hx of Achilles tendon repair H/O section Hx of shoulder surgery Hx of eye surgery Hx of hysterectomy Hx of tubal ligation Hx of foot surgery Hx of arthroscopic knee surgery History of knee replacement procedure of right knee History of lumbar surgery Social History Smoking Status: Former smoker alcohol intake: current alcohol intake frequency: a few times a month Review of Systems (Anesthesia) ROS Narrative System reviewed and no additional complaints, except as documented.
--- NOTE | 2025-02-25 12:13 | PCM.HP.STD ---
HPI - General General Date of Admission: 02/25/25 Date of Service: 02/25/25 Chief Complaint: peptic ulcer HPI Narrative QUINTIN DAVID, is a 59 F who presentsSHBORAHolly DAVID, is a 59 F who presents to the office today for 02/22/2023 OV with Barb Shirley, CRIMINAL ANALYST QUINTIN DAVID, is a 57 F who presents to the office today for discussion of findings from repeat EGD which was indicated to ensure healing of gastritis and duodenal ulcer found on EGD in 10/2022. This EGD showed no gastritis or ulcers; bxs from esophagus were benign. She had initially presented for recurrent episodes of vomiting and diarrhea that she relates to steroid injections for chronic back pain. She has no GI concerns at this time. Due for next colonoscopy in 2027. 02/06/23 EGD Impression: - Z-line irregular, 40 cm from the incisors. Biopsied. - Small hiatal hernia. - Normal second portion of the duodenum. MICROSCOPIC DIAGNOSIS Distal esophagus, biopsy: Gastroesophageal junctional mucosa with mild chronic inflammation. No evidence of goblet cell metaplasia. COLON 10/18/2022 - TA - Preparation of the colon was fair. - Hemorrhoids found on perianal exam. - Non-bleeding internal hemorrhoids. - Diverticulosis in the recto-sigmoid colon, in the sigmoid colon and in the descending colon. - Stool in the sigmoid colon, in the transverse colon, in the ascending colon and in the cecum. - One 5 mm polyp in the cecum, removed with a cold snare. Resected and retrieved. Recommendation: - Repeat colonoscopy in 5 years for surveillance. ABD US 11/19/2024 Fatty infiltration of the liver. 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 Samira Escobar [facility] Medical History Hepatitis C ADHD (attention deficit hyperactivity disorder) Alcohol use Gastric reflux History of ulceration Sports hernia Inguinal hernia Tubular adenoma of colon Agoraphobia, unspecified Hypertensive heart disease without heart failure Arthritis High cholesterol Back pain Former smoker Elevated lipids Home Medications ?Medication ?Instructions ?Recorded ?Last Taken ?Type indapamide 2.5 mg tablet 2.5 mg PO DAILY diuretic 10/16/19 10/11/23 History lisinopril 20 mg tablet 20 mg PO DAILY bp 10/16/19 10/12/23 History arginine (L-arginine) 500 mg 500 mg PO BID 01/27/21 10/11/23 History capsule cholecalciferol (vitamin D3) 25 25 mcg PO DAILY 01/27/21 10/11/23 History mcg (1,000 unit) capsule rosuvastatin 5 mg tablet 10 mg PO DAILY 01/27/21 10/11/23 History hydrocodone-acetaminophen 5-325mg 1 tab PO TID PRN pain 02/20/25 Unknown History 5mg-325mg lisdexamfetamine 60 mg capsule 60 mg PO DAILY 02/20/25 Unknown History Allergy/AdvReac Type Severity Reaction Status Date / Time No Known Allergies Allergy Verified 02/25/25 11:23 Family History Mother Rheumatoid arthritis Father Hypertension High cholesterol Sister Rheumatoid arthritis Hypertension High cholesterol Surgical History Hx of total knee arthroplasty Hx of left inguinal hernia repair S/P inguinal hernia repair History of esophagogastroduodenoscopy (EGD) History of colonoscopy History of total knee replacement Hx of Achilles tendon repair H/O section Hx of shoulder surgery Hx of eye surgery Hx of hysterectomy Hx of tubal ligation Hx of foot surgery Hx of arthroscopic knee surgery History of knee replacement procedure of right knee History of lumbar surgery Social History Smoking Status: Former smoker alcohol intake: current alcohol intake frequency: a few times a month Vital Signs Vital Signs Vital Signs: 02/25/25 11:24 02/25/25 11:24 02/25/25 12:07 Temperature 98.8 F 98.8 F Temperature Source Temporal Pulse Rate 80 80 Respiratory Rate 16 16 Respiratory Pattern Normal Blood Pressure 113/72 113/72 Blood Pressure Mean 85 Blood Pressure Source Monitor Blood Pressure Position Sitting Blood Pressure Location Right Arm Pulse Ox 100 100 Oxygen Delivery Method Room Air Room Air Weight Weight: 144 lb 13.499 oz Body Mass Index (BMI) 22.0 Physical Exam Const alert, oriented x3, no apparent distress and healthy appearing General Appearance: cooperative GI normal to inspection, nondistended, normoactive bowel sounds, soft to palpation, non-tender and non-distended Percussion: normal to percussion Rectal Exam: deferred Assessment & Plan Assessment/Plan (1) Abdominal cramping: (2) Duodenal ulcer: PLAN: Assessment and Plan Assessment and Plan (1) Diarrhea: Status: Acute (2) Steatosis, liver: Status: Acute (3) Abdominal cramping: Status: Acute Orders: Orders [facility] Misc. Today K76.0 - Fatty (change of) liver, not elsewhere classified, R10.9 - Unspecified abdominal pain, R19.7 - Diarrhea, unspecified Hepatitis A AB, Total Today K76.0 - Fatty (change of) liver, not elsewhere classified, R10.9 - Unspecified abdominal pain, R19.7 - Diarrhea, unspecified Hepatitis B Core Ab Total Today K76.0 - Fatty (change of) liver, not elsewhere classified, R10.9 - Unspecified abdominal pain, R19.7 - Diarrhea, unspecified Hepatitis B Surface Antibody Today K76.0 - Fatty (change of) liver, not elsewhere classified, R10.9 - Unspecified abdominal pain, R19.7 - Diarrhea, unspecified Hepatitis B Surface Antigen Today K76.0 - Fatty (change of) liver, not elsewhere classified, R10.9 - Unspecified abdominal pain, R19.7 - Diarrhea, unspecified Hepatitis C Antibody Today K76.0 - Fatty (change of) liver, not elsewhere classified, R10.9 - Unspecified abdominal pain, R19.7 - Diarrhea, unspecified Prothrombin Time w/INR Today K76.0 - Fatty (change of) liver, not elsewhere classified, R10.9 - Unspecified abdominal pain, R19.7 - Diarrhea, unspecified Thyroid Stim Hormone (TSH) Today K76.0 - Fatty (change of) liver, not elsewhere classified, R10.9 - Unspecified abdominal pain, R19.7 - Diarrhea, unspecified CBC W/Diff, Automated Today K76.0 - Fatty (change of) liver, not elsewhere classified, R10.9 - Unspecified abdominal pain, R19.7 - Diarrhea, unspecified Comprehensive Metabolic Profil Today K76.0 - Fatty (change of) liver, not elsewhere classified, R10.9 - Unspecified abdominal pain, R19.7 - Diarrhea, unspecified t-Transglutaminase IgA Today K76.0 - Fatty (change of) liver, not elsewhere classified, R10.9 - Unspecified abdominal pain, R19.7 - Diarrhea, unspecified Immunoglobulin A Today K76.0 - Fatty (change of) liver, not elsewhere classified, R10.9 - Unspecified abdominal pain, R19.7 - Diarrhea, unspecified Colonoscopy 02/25/25 K76.0 - Fatty (change of) liver, not elsewhere classified, R10.9 - Unspecified abdominal pain, R19.7 - Diarrhea, unspecified Medications: New peg 3350-sod sulf,[id number] 178.7-7.3-0.5 gram (Suflave) As directed for split dose bowel prep 2 mL 0RF ondansetron 4 mg orally; take two tablets PO two hours prior to start of bowel prep and one every 4 hours as needed for N/V 5 tabs 0RF Plan 59-year-old female presents for consultation with complaints of diarrhea. She was last seen in the office January 2023 for follow-up of gastritis and duodenal ulcer. Colonoscopy was last performed October 2022 (colon prep was fair) this exam revealed a cecal tubular adenoma. Terminal ileum biopsies were unremarkable. Abdominal ultrasound performed in 2024 revealed fatty infiltration of the liver and sludge within the gallbladder lumen. She presents today with complaints of frequent watery diarrhea and is taking up to 8 Lomotil daily. She is also experiencing abdominal cramping, bloating and excessive flatulence. I have ordered stool testing and scheduled her for colonoscopy to rule out microscopic colitis. Recent abdominal ultrasound revealed fatty infiltration of the liver and she will complete labs as well as a FibroScan to further evaluate. She will follow-up in the office post procedure. Note: Jump[employer] speech recognition azure developer software was used to create portions of this document. Sound-alike and misspelled words, as well as other azure developer errors may be contained in the documentation. Patient Instructions: Colonoscopy to r/o microscopic colitis - SuFlave GIPCR/C.Diff, H. pylori, fecal fat, O&P, calprotectin - P4 Diagnostics kit provided today at Complete labs: Hepatitis panel, ELF, CBC, CMP, INR, TSH, CBC, CMP, IgA, TTG IgA - will await results of labs from Dr. Vidal prior to having labs completed FibroScan Follow-up in office post procedure to review results and recommendations. Please call [facility] at [phone] to schedule your FibroScan. [facility] is located at: [address] [place] [address], [place] [address] [facility] is currently providing free FibroScans. A FibroScan is a painless, non-invasive assessment of the liver. This test is used to measure the stiffness of liver tissue (fibrosis) as well as liver fat (steatosis). FibroScan requires no sedation of any kind, it is very similar to an Ultrasound. You should not have anything to eat or drink 3 hours prior to your FibroScan. You should not have any alcohol for 3 days prior to your FibroScan. For the procedure, you will lie on your back with your right arm raised behind your head, and your right abdominal area exposed (wear loose fitting clothing). During the exam, you may feel a slight vibration on the skin at the tip of the probe as it delivers ultrasound waves to the area for measuring purposes. Please bring a list of your medications with you to the appointment. You will also need to include on the list what you take each medication for as well as the date when you started taking or changed dose of each medication. You can get a printed list of all your medications with dates from your pharmacy.
--- NOTE | 2025-02-25 12:50 | OP.CCLET_ITS ---
02/25/2025 Daisy Escobar Re : Colonoscopy procedure for Mallika Escobar This procedure was performed on Tuesday, February 25, 2025. My impressions and recommendations are as follows: Impressions : - Mild diverticulosis in the sigmoid colon. There was no evidence of diverticular bleeding. - Congested mucosa in the sigmoid colon, in the descending colon, in the ascending colon and in the cecum. Biopsied. - The examined portion of the ileum was normal. Biopsied. Recommendations : - Discharge patient to home. - Resume previous diet. - Continue present medications. - Await pathology results. - Repeat colonoscopy for surveillance. My findings are described in the full procedure note, which is enclosed. If I can be of further assistance, please feel free to contact me at . Sincerely, Edwin Thorpe, 02/25/2025 12:50:27 PM This report has been signed electronically.
--- NOTE | 2025-02-25 12:50 | OP.COLON_ITS ---
Patient Name: Mallika Shukla Procedure Date: 02/25/2025 11:45 AM Date of : 1965 Age: 59 Procedure: Colonoscopy Indications: Clinically significant diarrhea of unexplained origin, Follow-up for history of adenomatous polyps in the colon Providers: Edwin Thorpe DO Medicines: Monitored Anesthesia Care Patient Profile: This is a 59 year old female. Refer to note in patient chart for documentation of history and physical. Last Colonoscopy: more than 3 years ago. Complications: No immediate complications. Procedure: Pre-Anesthesia Assessment: - Prior to the procedure, a History and Physical was performed, and patient medications and allergies were reviewed. The patient is competent. The risks and benefits of the procedure and the sedation options and risks were discussed with the patient. All questions were answered and informed consent was obtained. Patient identification and proposed procedure were verified by the physician in the pre-procedure area. Mental Status Examination: alert and oriented. Airway Examination: normal oropharyngeal airway and neck mobility. Respiratory Examination: clear to auscultation. CV Examination: normal. Prophylactic Antibiotics: The patient does not require prophylactic antibiotics. Prior Anticoagulants: The patient has taken no anticoagulant or antiplatelet agents except for NSAID medication. ASA Grade Assessment: II - A patient with mild systemic disease. After reviewing the risks and benefits, the patient was deemed in satisfactory condition to undergo the procedure. The anesthesia plan was to use monitored anesthesia care (MAC). Immediately prior to administration of medications, the patient was re-assessed for adequacy to receive sedatives. The heart rate, respiratory rate, oxygen saturations, blood pressure, adequacy of pulmonary ventilation, and response to care were monitored throughout the procedure. The physical status of the patient was re-assessed after the procedure. After I obtained informed consent, the scope was passed under direct vision. Throughout the procedure, the patient's blood pressure, pulse, and oxygen saturations were monitored continuously. The Colonoscope was introduced through the anus and advanced to the terminal ileum. The colonoscopy was performed without difficulty. The patient tolerated the procedure well. The quality of the bowel preparation was adequate. The terminal ileum, ileocecal valve, appendiceal orifice, and rectum were photographed. Scope In: 12:23:22 PM Scope Withdrawal Time 0 hours 12 minutes 17 seconds Scope Out: 12:42:56 PM Total Procedure Duration Time 0 hours 19 minutes 34 seconds Findings: The perianal and digital rectal examinations were normal. A few small-mouthed diverticula were found in the sigmoid colon. There was no evidence of diverticular bleeding. An area of mildly congested mucosa was found in the sigmoid colon, in the descending colon, in the ascending colon and in the cecum. Biopsies were taken with a cold forceps for histology. Verification of patient identification for the specimen was done. Estimated blood loss was minimal. The terminal ileum appeared normal. Biopsies were taken with a cold forceps for histology. Verification of patient identification for the specimen was done. Estimated blood loss was minimal. Impression: - Mild diverticulosis in the sigmoid colon. There was no evidence of diverticular bleeding. - Congested mucosa in the sigmoid colon, in the descending colon, in the ascending colon and in the cecum. Biopsied. - The examined portion of the ileum was normal. Biopsied. Recommendation: - Discharge patient to home. - Resume previous diet. - Continue present medications. - Await pathology results. - Repeat colonoscopy for surveillance. Procedure Code(s): --- Professional --- 52569, Colonoscopy, flexible; with biopsy, single or multiple CPT copyright 2021 [employer]. All rights reserved. The codes documented in this report are preliminary and upon nutrition educator review may be revised to meet current compliance requirements. Edwin Thorpe DO 02/25/2025 12:50:27 PM This report has been signed electronically. Number of Addenda: 0 Note Initiated On: 02/25/2025 11:45 AM
--- NOTE | 2025-02-25 12:55 | PCM.POST.ANE ---
Anesthesia: Postop Eval I Current Vital Signs Temperature: 97 F Pulse Rate: 84 Blood Pressure: 117/104 Respiratory Rate: 16 Pulse Ox: 100 Oxygen Delivery Method: Room Air Assessment Airway patent: Yes Spontaneous unlabored respirations: Yes Mental status: Awake and Calm nausea: Yes Vomiting: No Anesthesia Complication: Yes Anesthesia Complication Comment:: promethazine adm IV in PACU for post op nausea Fluid Hydration Crystalloid volume administer (ml): 500 Total IV fluid infused: 500 Progress Note Anesthesia document: Postop Eval 1 completed: Yes
--- NOTE | 2025-02-25 14:02 | PCM.POSTANE2 ---
Anesthesia Postop Eval I Sum Postop Eval Completion status Anesthesia document: Postop Eval 1 completed: Yes Anesthesia Postop Eval I Summary Anesthesia Postop Eval I Summary: Anesthesia Postop Eval I: Assessment Summary Airway patent Yes 02/25/25 12:57 [email or web address] Spontaneous unlabored Yes 02/25/25 12:57 [email or web address] respirations Mental status Awake,Calm 02/25/25 12:57 [email or web address] nausea Yes 02/25/25 12:57 [email or web address] Vomiting No 02/25/25 12:57 [email or web address] Anesthesia Postop Eval I: Fluid Summary Crystalloid volume administer 500 02/25/25 12:57 [email or web address] (ml) Colloids volume administered ( ml) Blood Product volume administered (ml) Total IV fluid infused 500 02/25/25 12:57 [email or web address] Anesthesia Postop Eval I: Summary Notes Anesthesia Complication Yes 02/25/25 12:57 [email or web address] Anesthesia Complication promethazine adm 02/25/25 12:57 [email or web address] Comment: IV in PACU for post op nausea Post-operative progress note Anesthesia: Postop Eval II Evaluation Mental status: Awake and Calm Pain Level: 0 nausea: No Vomiting: No Complications Anesthesia Complication: No
== END 2025-02-25 13:35 | disposition home or self-care (01) ==
LOC: EN 11:01 → AC 11:02
PROVIDERS: PCP Internal Medicine; Referring Provider Internal Medicine; Visit Provider Internal Medicine Gastroenterology
PROC: 0DJD8ZZ Inspection of Lower Intestinal Tract, Via Natural or Artificial Opening Endoscopic (ICD-10-PCS; CPT 45378; principal; 2025-02-25 11:55)
DX: Z09 Encounter for follow-up examination after completed treatment for conditions other than malignant neoplasm (principal); K57.30 Diverticulosis of large intestine without perforation or abscess without bleeding; K76.0 Fatty (change of) liver, not elsewhere classified; I11.9 Hypertensive heart disease without heart failure; R10.9 Unspecified abdominal pain; R19.7 Diarrhea, unspecified; E78.00 Pure hypercholesterolemia, unspecified; M54.9 Dorsalgia, unspecified; G89.29 Other chronic pain; Z86.0101 Personal history of adenomatous and serrated colon polyps; Z87.891 Personal history of nicotine dependence
CPT/HCPCS: 45380; 88305; J2405

== ENCOUNTER → 2025-03-12 | Outpatient (CLI) | payer MEDICARE, SELFPAY ==
--- NOTE | 2025-03-12 15:17 | BI_ITS ---
EXAM: SCRN MAMM (CAD)W/YURIDIA BILAT 03/12/2025 CLINICAL HISTORY: F, Age 59 y/o , SCREENING TECHNIQUE: Bilateral screening digital breast tomosynthesis with 2D and 3D images. Computer aided detection. COMPARISON: Prior exam(s) dated 12/22/2023, 12/21/2023, 11/17/2022. FINDINGS: TISSUE DENSITY: The breast tissue is heterogenously dense, which may obscure small masses. The mammogram demonstrates that the patient has dense breasts. Supplemental screening with whole breast ultrasound or MRI may be considered for further evaluation. Bilateral Breast Mammographic Findings: No significant masses, calcifications or other abnormalities are identified. BI/SCRN MAMM (CAD)W/YURIDIA BILAT IMPRESSION: Right Breast: BIRADS 1 NEGATIVE. Left Breast: BIRADS 1 NEGATIVE. OVERALL FINAL ASSESSMENT: BIRADS 1 NEGATIVE. RECOMMENDATION: Routine annual follow-up in 1 Year A letter with findings and recommendations will be mailed to the patient. Reading Location: [id number]
--- NOTE | 2025-03-12 15:19 | BD_ITS ---
PROCEDURE: DEXA BONE DENSITY STUDY 03/12/2025 REASON FOR EXAM: F, age 59 y/o . Postmenopausal. TECHNIQUE: DXA scan of sites with data reported below. RE[facility]ENCE LINKS: [facility] Adult Positions COMPARISON: Prior study dated January 26, 2023. FINDINGS: BMD and T-SCORES Left femoral neck: 0.553 g/cm2, T-score -2.7 Femoral neck comparison data not recommended for monitoring change. Left total hip: 0.662 g/cm2, T-score -2.3 Change from prior: Improvement of 5.1%. Right femoral neck: 0.530 g/cm2, T-score -2.9 Femoral neck comparison data not recommended for monitoring change. Right total hip: 0.661 g/cm2, T-score -2.3 Change from prior: Improvement of 0.2%. Left 1/3 radius: 0.548 g/cm2, T-score -0.6 The World Health Organization has defined the following categories based on bone density: Normal bone density: T-score equal to or greater than -1.0 Osteopenia: T-score between -1.0 and -2.5 Osteoporosis: T-score equal to or less than -2.5 The patient does meet the pharmacological treatment recommendations for prevention of osteoporosis. BD/Dexa Bone Density Study IMPRESSION: OSTEOPOROSIS. Recommend follow-up as clinically warranted. Reading Location: [place] [id number]
== END | disposition home or self-care (01) ==
LOC: OPBD 15:15
PROVIDERS: PCP Internal Medicine; Referring Provider Internal Medicine; Visit Provider Internal Medicine
DX: Z12.31 Encounter for screening mammogram for malignant neoplasm of breast (principal); Z78.0 Asymptomatic menopausal state
CPT/HCPCS: 77063; 77067; 77080

== ENCOUNTER → 2025-05-22 | Outpatient (CLI) | payer MEDICARE, SELFPAY ==
[2025-05-22 11:06] LABS: Barbiturate Urine NEGATIVE (< 200 ng/mL); Benzodiazepine Urine NEGATIVE (< 200 ng/mL); PCP Urine NEGATIVE (< 25 ng/mL); THC Urine NEGATIVE (< 50 ng/mL)
== END | disposition home or self-care (01) ==
LOC: LAB 10:15
PROVIDERS: PCP Internal Medicine; Referring Provider Anesthesiology Pain Medicine; Visit Provider Anesthesiology Pain Medicine
DX: F11.20 Opioid dependence, uncomplicated (principal)
CPT/HCPCS: 80307